=== PATIENT | female | born 1995 | race Caucasian/White ===

== ENCOUNTER 2018-10-19 14:26 | Emergency (ER) | payer SELFPAY ==
--- NOTE | 2018-10-19 16:38 | EDM.PDOC ---
ED HPI GENERAL MEDICAL PROBLEM Lower Pelvic Pain Score (Numeric/FACES): 7 <Cynthia Gill - Last Filed: 10/19/18 16:32> - General Source of Information: Reports: Patient, Family, RN Notes Reviewed History Limitations: Reports: No Limitations <IesharPrince - Last Filed: 10/19/18 17:21> - General Chief Complaint: WINDOWS APPLICATION PACKAGER Problem Stated Complaint: 10 WKS /SPOTTING/CRAMPING Time Seen by Provider: 10/19/18 17:17 - History of Present Illness INITIAL COMMENTS - FREE TEXT/NARRATIVE: Twila is a 23-year-old at 10 weeks 1 day gestation who presents to the ER with complaints of vaginal spotting, abdominal cramping, back pain, and dysuria for the past two days. Reports a history of UTIs, particularly after taking baths. States she took a bath the night before these symptoms began. She has had a scant amount of blood on the toilet paper when wiping, but denies a sudden gush of bleeding or clots. She has had ongoing lower abdominal cramping and back pain which she rates at a 5-6/10. She does have constipation at times, and had one hard bowel movement this morning. She follows with an WINDOWS APPLICATION PACKAGER in [place] and has had one visit thus far. 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 History: had gestational diabetes with first and had second child 4 months early - Past Surgical History Musculoskeletal Surgical History: Reports: Other (See Below) Other Musculoskeletal Surgeries/Procedures:: hip surgery <Cynthia Gill - Last Filed: 10/19/18 16:32> Social & Family History - Tobacco Use Smoking Status *Q: Current Every Day Smoker Years of Tobacco use: 6 Packs/Tins Daily: 0.5 - Caffeine Use Caffeine Use: Reports: Coffee, Soda, Tea - Recreational Drug Use Recreational Drug Use: No <Cynthia Gill - Last Filed: 10/19/18 16:32> ED ROS GENERAL - Review of Systems Review Of Systems: See Below Constitutional: Reports: Fatigue. Denies: Fever, Chills, Weakness HEENT: Reports: No Symptoms Respiratory: Reports: No Symptoms. Denies: Shortness of Breath Cardiovascular: Reports: No Symptoms Endocrine: Reports: Fatigue GI/Abdominal: Reports: Abdominal Pain (Cramping in the lower quadrants), Constipation. Denies: Diarrhea, Nausea, Vomiting : Reports: Discharge, Frequency, Urgency Skin: Reports: No Symptoms Neurological: Reports: No Symptoms Psychiatric: Reports: No Symptoms Hematologic/Lymphatic: Reports: No Symptoms, Easy Bleeding. Denies: Easy Bruising <BridgetCynthia N - Last Filed: 10/19/18 16:32> ED EXAM - Physical Exam Exam Limited By: No Limitations General Appearance: Alert, WD/WN, No Apparent Distress Eye Exam: Bilateral Eye: Normal Inspection Nose: Normal Inspection Head: Atraumatic, Normocephalic Respiratory/Chest: No Respiratory Distress, Lungs Clear, Normal Breath Sounds Cardiovascular: Normal Peripheral Pulses, Regular Rate, Rhythm, No Edema, No Gallop, No Murmur, No Rub GI/Abdominal Exam: Normal Bowel Sounds, Soft, Tender (Lower quadrants bilaterally) Rectal Exam: Deferred Heart Tones: Present Movement: Active Neurological: Alert, Oriented, Normal Cognition, No Motor/Sensory Deficits Psychiatric: Normal Affect, Normal Mood Skin Exam: Warm, Dry, Intact <Cynthia Gill N - Last Filed: 10/19/18 16:32> - Physical Exam Exam: See Below <IesharPrince - Last Filed: 10/19/18 17:21> - Physical Exam Text/Narrative:: Agree with physical exam below, I personally attempted to obtain heart tones with Doppler was unsuccessful however was able to find fetus and cardiac activity with ultrasound (IesharPrince) - Vital Signs Last Recorded V/S: Last Vital Signs Temp 97.7 F 10/19/18 15:40 Pulse 71 10/19/18 15:40 Resp 18 10/19/18 15:40 BP 105/53 L 10/19/18 15:40 Pulse Ox 98 10/19/18 15:40 - Orders/Labs/Meds Labs: Laboratory Tests 10/19/18 Range/Units 16:46 Urine Color Yellow Urine Appearance Cloudy Urine pH 6.0 (4.5-8.0) Ur Specific [place] 1.020 (1.008-1.030) Urine Protein Negative (NEGATIVE) mg/dL Urine Glucose (UA) Normal (NEGATIVE) mg/dL Urine Ketones Negative (NEGATIVE) mg/dL Urine Occult Blood Moderate (NEGATIVE) Urine Nitrite Positive H (NEGATIVE) Urine Bilirubin Negative (NEGATIVE) Urine Urobilinogen Normal (NORMAL) mg/dL Ur Leukocyte Esterase Moderate (NEGATIVE) Urine RBC 10-20 H (0-5) Urine WBC 20-30 H (0-5) Ur Epithelial Cells Rare Amorphous Sediment Not seen Urine Bacteria Many Urine Mucus Not seen Departure <BridgetKimCynthia N - Last Filed: 10/19/18 16:32> - Departure Time of Disposition: 17:20 Condition: Fair <Prince Sepulveda - Last Filed: 10/19/18 17:21> - Departure Disposition: Home, Self-Care 01 Clinical Impression: Urinary tract infection Qualifiers: Urinary tract infection type: acute cystitis Hematuria presence: with hematuria Qualified Code(s): N30.01 - Acute cystitis with hematuria - Discharge Information Referrals: PCP,None [Primary Care Provider] - Forms: ED Department Discharge Additional Instructions: Take full course of antibiotics, please follow-up with your WINDOWS APPLICATION PACKAGER upon return home, a urine culture was done which will not be available for 3 or 4 days call return to the emergency department worsening of symptoms <BridgetCynthia Scott - Last Filed: 10/19/18 16:32> <Prince Sepulveda - Last Filed: 10/19/18 17:21> - Assessment/Plan Plan: Assessment Acuity = acute Site and laterality = urinary tract infection complicated patient and first trimester Etiology = probable bacterial cause Manifestations = hematuria Location of injury = Home Lab values = urinalysis positive for nitrates, 10 to 20 rbc's consistent hematuria and 20-30 WBCs consistent with pyuria cultures pending Plan Elected to treat empirically amoxicillin 500 mg by mouth 3 times a day 7 days follow-up with WINDOWS APPLICATION PACKAGER upon return home * Prince Jules MD was personally available for consultation in the ED. I have reviewed the chart and agree with the documentation as recorded by the NURSE ESTHETICIAN student, including the assessment, treatment plan and disposition. * Prince Jules MD personally saw and examined the patient. I have reviewed and agree with the NURSE ESTHETICIAN student's findings. (Officer,Prince)
== END 2018-10-19 17:25 | disposition home or self-care (01) ==
LOC: JP.ED 14:26
DX: O23.41 Unspecified infection of urinary tract in pregnancy, first trimester (principal); O99.331 Smoking (tobacco) complicating pregnancy, first trimester; F17.210 Nicotine dependence, cigarettes, uncomplicated; Z3A.10 10 weeks gestation of pregnancy
CPT/HCPCS: 81001; 99284

== ENCOUNTER 2018-12-02 11:55 | Emergency (ER) | payer MEDICAID, OTHER ==
--- NOTE | 2018-12-02 12:49 | EDM.PDOC ---
ED HPI GENERAL MEDICAL PROBLEM - General Chief Complaint: Abdominal Pain Stated Complaint: 16 WKS PREG W/ ABD PAINS AND DIZZY Time Seen by Provider: 12/02/18 12:35 Source of Information: Reports: Patient, Old Records, RN History Limitations: Reports: No Limitations - History of Present Illness INITIAL COMMENTS - FREE TEXT/NARRATIVE: 23 yo female who is 16 weeks presents with several days of low abdominal pain and now dizziness. Denies vaginal bleeding. Has not discussed her sx's with her OB doctor. Has no urinary sx's and was tx'd recently for a UTI with amoxicillin. Bowels normal. This is her 3rd . Had this pain with one of her previous pregnancies. States doesn't remember what they told her , but they didn't do anything about it. Onset: Gradual Duration: Day(s):, Getting Worse Location: Reports: Head (dizzy), Abdomen Quality: Reports: Pressure Severity: Moderate Improves with: Reports: None Worsens with: Reports: None Context: Reports: Other (see HPI) Associated Symptoms: Reports: Other (light-headedness) Treatments BABBITT SPINNER: Reports: Other (see below) (none) - Related Data Allergies Allergy/AdvReac Type Severity Reaction Status Date / Time No Known Allergies Allergy Verified 12/02/18 12:11 Home Meds: Home Meds [id number]/Iron Fumarate/FA/DSS [ 19 Tablet] 1 tab PO DAILY 10/19/18 [ History] hydrOXYzine pamoate [Hydroxyzine Pamoate] 12/02/18 [History] 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: had gestational diabetes with first and had second child 4 months early - Past Surgical History Musculoskeletal Surgical History: Reports: Other (See Below) Other Musculoskeletal Surgeries/Procedures:: hip surgery Social & Family History - Tobacco Use Smoking Status *Q: Never Smoker - Caffeine Use Caffeine Use: Reports: Coffee, Soda, Tea ED ROS GENERAL - Review of Systems Review Of Systems: See Below Constitutional: Reports: No Symptoms HEENT: Reports: No Symptoms Respiratory: Reports: No Symptoms Cardiovascular: Reports: No Symptoms, Lightheadedness GI/Abdominal: Reports: Abdominal Pain : Reports: No Symptoms Musculoskeletal: Reports: No Symptoms Skin: Reports: No Symptoms Psychiatric: Reports: No Symptoms ED EXAM, GI/ABD - Physical Exam Exam: See Below Text/Narrative:: No nystagmus. Exam Limited By: No Limitations General Appearance: Alert, WD/WN, No Apparent Distress Eyes: Bilateral: Normal Appearance Ears: Normal External Exam, Normal Canal, Hearing Grossly Normal, Normal TMs Nose: Normal Inspection, No Blood Throat/Mouth: Normal Inspection, Normal Lips, Normal Oropharynx, Normal Voice, No Airway Compromise Head: Atraumatic, Normocephalic Neck: Normal Inspection, Supple Respiratory/Chest: No Respiratory Distress, Lungs Clear, Normal Breath Sounds, No Accessory Muscle Use Cardiovascular: Regular Rate, Rhythm, No Edema GI/Abdominal Exam: Normal Bowel Sounds, Soft, Non-Tender, No Distention Back Exam: Normal Inspection. No: CVA Tenderness (R), CVA Tenderness (L) Extremities: Normal Inspection, Normal Range of Motion, Non-Tender, No Pedal Edema Neurological: Alert, Oriented, CN II-XII Intact, Normal Cognition, No Motor/ Sensory Deficits Psychiatric: Normal Affect, Normal Mood Skin Exam: Warm, Dry, Intact, Normal Color, No Rash Course - Vital Signs Last Recorded V/S: Last Vital Signs Temp 36.6 C 12/02/18 12:18 Pulse 76 12/02/18 12:18 Resp 14 12/02/18 12:18 BP 101/51 L 12/02/18 12:18 Pulse Ox 98 12/02/18 12:18 Orthostatic Blood Pressure [ 105/53 Standing] Orthostatic Blood Pressure [ 96/47 Sitting] Orthostatic Blood Pressure [ 104/48 Supine] - Orders/Labs/Meds Orders: Active Orders 24 hr Category Date Time Status Orthostatic Vital Signs [RC] ASDIRECTED Care 12/02/18 12:43 Active Labs: Laboratory Tests 12/02/18 Range/Units 13:02 Urine Color Yellow Urine Appearance Cloudy Urine pH 6.0 (4.5-8.0) Ur Specific [place] 1.020 (1.008-1.030) Urine Protein Negative (NEGATIVE) mg/dL Urine Glucose (UA) Normal (NEGATIVE) mg/dL Urine Ketones Negative (NEGATIVE) mg/dL Urine Occult Blood Trace (NEGATIVE) Urine Nitrite Negative (NEGATIVE) Urine Bilirubin Negative (NEGATIVE) Urine Urobilinogen Normal (NORMAL) mg/dL Ur Leukocyte Esterase Negative (NEGATIVE) Urine RBC 0-5 (0-5) Urine WBC 0-5 (0-5) Ur Epithelial Cells Few Amorphous Sediment Many Urine Bacteria Few Urine Mucus Not seen Departure - Departure Time of Disposition: 13:20 Disposition: Home, Self-Care 01 Condition: Good Clinical Impression: Round ligament pain, First trimester - Discharge Information *PRESCRIPTION DRUG MONITORING PROGRAM REVIEWED*: No *COPY OF PRESCRIPTION DRUG MONITORING REPORT IN PATIENT ADA: No Instructions: First Trimester of , [id number] Referrals: Ruth Choi CNM [Primary Care Provider] - Forms: ED Department Discharge Additional Instructions: Take acetaminophen as needed for your round ligament pain. Drink ample fluids. If you get light-headed sit down right away and drink a glass of water. Recheck with your OB doctor as needed. - My Orders Last 24 Hours: My Active Orders 12/02/18 12:43 Orthostatic Vital Signs [RC] ASDIRECTED - Assessment/Plan Last 24 Hours: My Active Orders 12/02/18 12:43 Orthostatic Vital Signs [RC] ASDIRECTED
== END 2018-12-02 13:33 | disposition home or self-care (01) ==
LOC: JP.ED 11:55
DX: O99.89 Other specified diseases and conditions complicating pregnancy, childbirth and the puerperium (principal); R10.2 Pelvic and perineal pain; R42 Dizziness and giddiness; Z3A.16 16 weeks gestation of pregnancy
CPT/HCPCS: 81001; 99284

== ENCOUNTER 2019-05-13 05:02 | Inpatient (IN) | payer MEDICAID ==
[2019-05-13] MEDS ORDERED: Penicillin G Potassium 5 MILLUNITS in Sodium Chloride 0.9% 50 ML IV ONE (05:31)
[2019-05-13] MEDS ORDERED: Sodium Chloride 0.9% 1,000 ML IV ONE (05:58)
[2019-05-13] MEDS ORDERED: Sodium Chloride 0.9% 10 ML Syringe FLUSH PRN (06:00)
[2019-05-13] MEDS ORDERED: Ondansetron 4 MG/2 ML SDV IV PRN (06:07)
[2019-05-13] MEDS ORDERED: Acetaminophen 325 MG Tab PO PRN (06:07)
--- NOTE | 2019-05-13 06:38 | PCM.LDHP ---
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 History: had gestational diabetes with first and had second child 4 months early - Past Surgical History Musculoskeletal Surgical History: Reports: Other (See Below) Other Musculoskeletal Surgeries/Procedures:: hip surgery Social & Family History - Caffeine Use Caffeine Use: Reports: Coffee, Soda, Tea H&P Review of Systems - Review of Systems: Review Of Systems: See Below General: Reports: No Symptoms HEENT: Reports: No Symptoms Pulmonary: Reports: No Symptoms Cardiovascular: Reports: No Symptoms Gastrointestinal: Reports: No Symptoms Genitourinary: Reports: No Symptoms Musculoskeletal: Reports: No Symptoms Skin: Reports: No Symptoms Psychiatric: Reports: No Symptoms Neurological: Reports: No Symptoms Hematologic/Lymphatic: Reports: No Symptoms Immunologic: Reports: No Symptoms L&D Exam - Exam Exam: See Below - OB Specific Contraction Intensity: Moderate Movement: Active Heart Tones: Present Heart Rate (FHR) Variability: Moderate (6-25 bmp) Presentation: Vertex - Harden Score Harden Score Cervix Position: Midposition Harden Score Consistency: Soft Harden Score Effacement: >80% Harden Score Dilation: > 5 cm Harden Score 's Station: -1 ,0 Harden Score Total: 11 - Exam General: Alert, Oriented, Cooperative HEENT: PERRLA, Conjunctiva Clear, EACs Clear, EOMI, Hearing Intact, Mucosa Moist & [place], Nares Patent, Normal Nasal Septum, Posterior Pharynx Clear, TMs Clear Neck: Supple, Trachea Midline Lungs: Clear to Auscultation, Normal Respiratory Effort Cardiovascular: Regular Rate, Regular Rhythm GI/Abdominal Exam: Normal Bowel Sounds, Soft, Non-Tender, No Organomegaly, No Distention, No Abnormal Bruit, No Mass, Pelvis Stable Rectal Exam: Normal Exam, Normal Rectal Tone Genitourinary: Normal external exam, Normal bimanual exam, Normal speculum exam Back Exam: Normal Inspection, Full Range of Motion Extremities: Normal Inspection, Normal Range of Motion, Non-Tender, No Pedal Edema, Normal Capillary Refill Skin: Warm, Dry, Intact Neurological: Cranial Nerves Intact, Reflexes Equal Bilateral Psychiatric: Alert, Normal Affect, Normal Mood - Patient Data Lab Results Last 24 hrs: Laboratory Results - last 24 hr 05/13/19 05/13/19 05/13/19 Range/Units 05:08 05:20 05:22 Urine Color Yellow (YELLOW) Urine Appearance Clear (CLEAR) Urine pH 6.5 (5.0-8.0) Ur Specific [place] 1.010 (1.008-1.030) Urine Protein Negative (NEGATIVE) mg/dL Urine Glucose (UA) 100 H (NEGATIVE) mg/dL Urine Ketones Negative (NEGATIVE) mg/dL Urine Occult Blood Trace-lysed H (NEGATIVE) Urine Nitrite Negative (NEGATIVE) Urine Bilirubin Negative (NEGATIVE) Urine Urobilinogen 1.0 (0.2-1.0) EU/dL Ur Leukocyte Esterase Negative (NEGATIVE) Urine RBC 0-5 (0-5) Urine WBC 0-5 (0-5) Ur Epithelial Cells Moderate Amorphous Sediment Not seen Urine Bacteria Few Urine Mucus Not seen Membrane Rupture Positive H (NEGATIVE) Urine Opiates Screen Negative (NEGATIVE) Ur Oxycodone Screen Negative (NEGATIVE) Urine Methadone Screen Negative (NEGATIVE) Ur Propoxyphene Screen Negative (NEGATIVE) Ur Barbiturates Screen Negative (NEGATIVE) Ur Tricyclics Screen Negative (NEGATIVE) Ur Phencyclidine Scrn Negative (NEGATIVE) Ur Amphetamine Screen Presumptive positive H (NEGATIVE) U Methamphetamines Scrn Presumptive positive H (NEGATIVE) Urine MDMA Screen Negative (NEGATIVE) U Benzodiazepines Scrn Negative (NEGATIVE) U Cocaine Metab Screen Negative (NEGATIVE) U Marijuana (THC) Screen Negative (NEGATIVE) - Problem List (1) Positive urine drug screen SNOMED Code(s): 023337596, 193699331, 523969639 ICD Code: R82.5 - ELEVATED URINE LEVELS OF DRUG/MEDS/BIOL SUBST Status: Acute Current Visit: Yes (2) High risk due to history of labor SNOMED Code(s): 666007250 ICD Code: O09.219 - SUPRVSN OF PREG W HISTORY OF PRE-TERM LABOR, UNSP TRIMESTER Status: Acute Current Visit: Yes (3) care insufficient SNOMED Code(s): 2922355744784 ICD Code: O09.30 - SUPRVSN OF PREG W INSUFFICIENT ANTENAT CARE, UNSP TRIMESTER Status: Acute Current Visit: Yes (4) SROM (spontaneous rupture of membranes) SNOMED Code(s): 987988153 ICD Code: [id number] - Status: Acute Current Visit: Yes (5) Labor established SNOMED Code(s): 98808390 ICD Code: [id number] - Status: Acute Current Visit: Yes (6) SNOMED Code(s): 80174424 ICD Code: Z34.90 - ENCNTR FOR SUPRVSN OF NORMAL , UNSP, UNSP TRIMESTER Status: Acute Current Visit: Yes Qualifiers: Weeks of gestation: 39 weeks Qualified Code(s): Z3A.39 - 39 weeks gestation of Problem List Initiated/Reviewed/Updated: Yes Orders Last 24hrs: Active Orders 24 hr Category Date Time Status Patient Status [ADT] Routine ADT 05/13/19 06:00 Active Ambulate [RC] PER UNIT ROUTINE Care 05/13/19 06:07 Active Communication Order [RC] ASDIRECTED Care 05/13/19 06:00 Active Heart Tones [RC] PER UNIT ROUTINE Care 05/13/19 06:00 Active Non Stress Test [RC] Click to Edit Care 05/13/19 06:00 Active May Shower [RC] ASDIRECTED Care 05/13/19 06:07 Active Notify Provider Vital Signs [RC] PRN Care 05/13/19 06:07 Active Notify Provider [RC] PRN Care 05/13/19 06:00 Active OB Check [OM.PC] Click to Edit Care 05/13/19 05:07 Ordered Up ad Jessica [RC] ASDIRECTED Care 05/13/19 06:07 Active VTE/DVT Education [RC] Click to Edit Care 05/13/19 06:13 Active Vital Signs [RC] PER UNIT ROUTINE Care 05/13/19 06:00 Active Consult to Case Management/Sharepoint Trainer [CONS] Cons 05/13/19 06:07 Active Routine Regular Diet [DIET] Diet 05/13/19 Breakfast Active CBC WITH AUTO DIFF [HEME] Urgent Lab 05/13/19 06:28 Received Acetaminophen [Tylenol] Med 05/13/19 06:07 Active 650 mg PO Q4H PRN Ondansetron [Zofran] Med 05/13/19 06:07 Active 4 mg IV Q4H PRN Sodium Chloride 0.9% [Normal Saline] 1,000 ml Med 05/13/19 05:58 Active IV BOLUS Sodium Chloride 0.9% [Saline Flush] Med 05/13/19 06:00 Active 10 ml FLUSH ASDIRECTED PRN DVT/VTE Prophylaxis Reflex [OM.PC] Routine Oth 05/13/19 06:07 Ordered Saline Lock Insert [OM.PC] Routine Oth 05/13/19 06:00 Ordered Resuscitation Status Routine Resus Stat 05/13/19 06:00 Ordered Medication Orders Acetaminophen (Tylenol) 650 mg PO Q4H PRN PRN Reason: Pain (Mild 1-3) and fever Sodium Chloride (Normal Saline) 1,000 mls @ 999 mls/hr IV BOLUS ONE Stop: 05/13/19 06:58 Ondansetron HCl (Zofran) 4 mg IV Q4H PRN PRN Reason: Nausea/Vomiting Sodium Chloride (Saline Flush) 10 ml FLUSH ASDIRECTED PRN PRN Reason: Keep Vein Open Assessment/Plan Comment:: 05/13/2019 23 yo here at 39 3/7 weeks gestation with SROM at 0300 this am History of poor care Drug use-methamphetamine patient admitted to as recently as today History of at 24 weeks gestation last History of noncompliance Labs-A positive, Hep B neg, Hep C neg, HIV neg, RPR nonreactive, Rubella Immune , GBS negative, UDS positive today for methamphetamines and amphetamines Plan- Continue to monitor labor Continue to monitor FHTs If labor does not progress with start pitocin Give IV bolus at this time Social service consult for positive UDS Pain management per patient request Plan and anticipate a vaginal delivery
[2019-05-13] MEDS ORDERED: Lactated Ringers 1,000 ML IV SCH (06:45)
[2019-05-13] MEDS ORDERED: fentaNYL 100 MCG/2 ML SDV ONE (10:35)
[2019-05-13] MEDS ORDERED: Methylergonovine 0.2 MG/1 ML Amp ONE (10:42)
[2019-05-13] MEDS ORDERED: Benzocaine 20% Top Spray 56 GM Bottle TOP PRN (10:58)
[2019-05-13] MEDS ORDERED: Witch Hazel Medicated Pads 100/Jar TOP PRN (10:58)
[2019-05-13] MEDS ORDERED: Acetaminophen 325 MG Tab, 50 Tab Bulk Bottle PO PRN (11:04)
[2019-05-13] MEDS ORDERED: Ibuprofen 200 MG Tab, 24 Tab Bulk Bottle PO PRN (11:04)
[2019-05-13] MEDS ORDERED: Methylergonovine 0.2 MG/1 ML Amp IM STA (11:54)
--- NOTE | 2019-05-13 14:15 | PCM.DEL ---
L & D Note - General Info Date of Service: 05/13/19 Mother's Due Date: 05/17/19 - Delivery Note Delivery Outcome: Livebirth Infant Delivery Method: Spontaneous Vaginal Delivery-Single Delivery Mode: Spontaneous Presentation: Left Occiput Posterior (LOP) Nuchal Cord: None Anesthesia Type: Nitrous Oxide Episiotomy Type: None Laceration: None Placenta: Intact, Spontaneous Cord: 3 Vessels Estimated Blood Loss: 500 Resuscitation Needed: No [place]: Bulb Syringe, Stimulated, Warmed, [place] Used Provider: Marcia Sanots Score 1 min: 7 Score 5 min: 7 Score 10 min: 8 Post Delivery Events: Hemorrhage Second Stage Interventions: Reports: Second Nurse Assessed Progress of Descent, Second Nurse Reviewed Contraction Pattern, Second Nurse Reviewed Heart Tones, Encouragement Given, Pushing Effectively, Pushing Ineffectively, Pushing Involuntarily, Pushing, McRobert's Position, Pushing, Stirrups/Leg Supports Delivery Comments (Free Text/Narrative):: 05/13/2019 23 yo delivered a viable male in LOP position over an intact perineum at 1019 on 05/13/2019. Patient did struggle some with control during pain and pushing, was at some times not pushing effectively. Did get in control and was able to push effectively. was then delivered and placed on prewarmed blanket on mother's abdomen, cord was double clamped and cut by CNM after about 30 seconds of delayed cord clamping. then began to cry and pink up in color. Bulb suctioned, stimulated, warmed and dried. APGARS-7/7 /8, weight-6lbs 11oz, length-19 inches, then still was not crying vigorously so was brought to the warmer for more assessment. At warmer did use a delee and deep suctioned about 6-7ml of bloody mucous at that time and infant then became more vigorous and pinked in color. Then went back to placenta which was slower coming out and had three larger blood clots, three vessel cord , 500ml EBL. No lacerations noted of vagina, perineum, labia, or rectum. now with nurse due to patient unsure if giving up for adoption and history of drug use. Due to delivery and complications did order a CXR, CBC, CRP on baby. Both patients currently stable at time of report. Stages of labor- 1st [id number] 2nd [id number] 3rd [id number] - General Info Date of Service: 05/13/19 Functional Status: Reports: Pain Controlled - Review of Systems General: Reports: No Symptoms HEENT: Reports: No Symptoms Pulmonary: Reports: No Symptoms Cardiovascular: Reports: No Symptoms Gastrointestinal: Reports: No Symptoms Genitourinary: Reports: No Symptoms Musculoskeletal: Reports: No Symptoms Skin: Reports: No Symptoms Neurological: Reports: No Symptoms Psychiatric: Reports: No Symptoms - Patient Data Vitals - Most Recent: Last Vital Signs Temp 36.0 C 05/13/19 11:30 Pulse 90 05/13/19 11:30 Resp 16 05/13/19 11:30 BP 120/64 05/13/19 11:30 Pulse Ox 96 05/13/19 10:00 Weight - Most Recent: 54.885 kg I&O - Last 24 Hours: Intake & Output 05/12/19 05/13/19 05/13/19 22:59 06:59 14:59 Intake Total 2480 Balance 2480 Lab Results Last 24 Hours: Laboratory Results - last 24 hr 05/13/19 05/13/19 05/13/19 Range/Units 05:08 05:20 05:22 WBC (4.5-11.0) K/uL RBC (3.30-5.50) M/uL Hgb (12.0-15.0) g/dL Hct (36.0-48.0) % MCV (80-98) fL MCH (27-31) pg MCHC (32-36) % Plt Count (150-400) K/uL Neut % (Auto) (36-66) % Lymph % (Auto) (24-44) % [place] % (Auto) (2-6) % Eos % (Auto) (2-4) % Baso % (Auto) (0-1) % Urine Color Yellow (YELLOW) Urine Appearance Clear (CLEAR) Urine pH 6.5 (5.0-8.0) Ur Specific [place] 1.010 (1.008-1.030) Urine Protein Negative (NEGATIVE) mg/dL Urine Glucose (UA) 100 H (NEGATIVE) mg/dL Urine Ketones Negative (NEGATIVE) mg/dL Urine Occult Blood Trace-lysed H (NEGATIVE) Urine Nitrite Negative (NEGATIVE) Urine Bilirubin Negative (NEGATIVE) Urine Urobilinogen 1.0 (0.2-1.0) EU/dL Ur Leukocyte Esterase Negative (NEGATIVE) Urine RBC 0-5 (0-5) Urine WBC 0-5 (0-5) Ur Epithelial Cells Moderate Amorphous Sediment Not seen Urine Bacteria Few Urine Mucus Not seen Membrane Rupture Positive H (NEGATIVE) Urine Opiates Screen Negative (NEGATIVE) Ur Oxycodone Screen Negative (NEGATIVE) Urine Methadone Screen Negative (NEGATIVE) Ur Propoxyphene Screen Negative (NEGATIVE) Ur Barbiturates Screen Negative (NEGATIVE) Ur Tricyclics Screen Negative (NEGATIVE) Ur Phencyclidine Scrn Negative (NEGATIVE) Ur Amphetamine Screen Presumptive positive H (NEGATIVE) U Methamphetamines Scrn Presumptive positive H (NEGATIVE) Urine MDMA Screen Negative (NEGATIVE) U Benzodiazepines Scrn Negative (NEGATIVE) U Cocaine Metab Screen Negative (NEGATIVE) U Marijuana (THC) Screen Negative (NEGATIVE) 05/13/19 Range/Units 06:28 WBC 11.0 (4.5-11.0) K/uL RBC 3.48 (3.30-5.50) M/uL Hgb 10.0 L (12.0-15.0) g/dL Hct 32.0 L (36.0-48.0) % MCV 92 (80-98) fL MCH 29 (27-31) pg MCHC 31 L (32-36) % Plt Count 270 (150-400) K/uL Neut % (Auto) 74 H (36-66) % Lymph % (Auto) 20 L (24-44) % [place] % (Auto) 6 (2-6) % Eos % (Auto) 1 L (2-4) % Baso % (Auto) 0 (0-1) % Urine Color (YELLOW) Urine Appearance (CLEAR) Urine pH (5.0-8.0) Ur Specific [place] (1.008-1.030) Urine Protein (NEGATIVE) mg/dL Urine Glucose (UA) (NEGATIVE) mg/dL Urine Ketones (NEGATIVE) mg/dL Urine Occult Blood (NEGATIVE) Urine Nitrite (NEGATIVE) Urine Bilirubin (NEGATIVE) Urine Urobilinogen (0.2-1.0) EU/dL Ur Leukocyte Esterase (NEGATIVE) Urine RBC (0-5) Urine WBC (0-5) Ur Epithelial Cells Amorphous Sediment Urine Bacteria Urine Mucus Membrane Rupture (NEGATIVE) Urine Opiates Screen (NEGATIVE) Ur Oxycodone Screen (NEGATIVE) Urine Methadone Screen (NEGATIVE) Ur Propoxyphene Screen (NEGATIVE) Ur Barbiturates Screen (NEGATIVE) Ur Tricyclics Screen (NEGATIVE) Ur Phencyclidine Scrn (NEGATIVE) Ur Amphetamine Screen (NEGATIVE) U Methamphetamines Scrn (NEGATIVE) Urine MDMA Screen (NEGATIVE) U Benzodiazepines Scrn (NEGATIVE) U Cocaine Metab Screen (NEGATIVE) U Marijuana (THC) Screen (NEGATIVE) Med Orders - Current: Current Medications Acetaminophen (Tylenol) 650 mg PO Q4H PRN PRN Reason: Pain (Mild 1-3) and fever Acetaminophen (Tylenol Bulk Bottle) 325 mg PO Q4H PRN PRN Reason: Pain Last Admin: 05/13/19 11:53 Dose: 1 bottle Benzocaine (Hvjr-I-Amxvgpk 20% [place]) 0 gm TOP Q4H PRN PRN Reason: Perineal Comfort Measure Lactated Ringer's (Ringers, Lactated) 1,000 mls @ 100 mls/hr IV ASDIRECTED SAI Last Admin: 05/13/19 06:44 Dose: 100 mls/hr Oxytocin/Sodium Chloride (Pitocin In Ns 20 Units/1,000 Ml) 20 unit in 1,000 mls @ 6 mls/hr IV TITRATE SAI; Protocol Last Titration: 05/13/19 10:25 Dose: 999 mls/hr Ibuprofen (Motrin Bulk Bottle) 600 mg PO Q6H PRN PRN Reason: Pain Last Admin: 05/13/19 11:53 Dose: 1 bottle Ondansetron HCl (Zofran) 4 mg IV Q4H PRN PRN Reason: Nausea/Vomiting Sodium Chloride (Saline Flush) 10 ml FLUSH ASDIRECTED PRN PRN Reason: Keep Vein Open Witch Sofie (Tucks) 1 pad TOP ASDIRECTED PRN PRN Reason: Hemorrhoids Discontinued Medications Fentanyl (Sublimaze) Confirm Administered Dose 100 mcg .ROUTE .STK-MED ONE Stop: 05/13/19 10:36 Last Admin: 05/13/19 11:53 Dose: Not Given Penicillin G Potassium 5 (millunits/ Sodium Chloride) 50 mls @ 100 mls/hr IV ONETIME ONE Stop: 05/13/19 06:00 Last Admin: 05/13/19 07:16 Dose: Not Given Sodium Chloride (Normal Saline) 1,000 mls @ 999 mls/hr IV BOLUS ONE Stop: 05/13/19 06:58 Last Admin: 05/13/19 05:45 Dose: 999 mls/hr Methylergonovine Maleate (Methergine) 0.2 mg IM Q4H STA Stop: 05/13/19 11:55 Last Admin: 05/13/19 10:45 Dose: 0.2 mg - Exam General: Alert, Oriented, Cooperative HEENT: Pupils Equal, Pupils Reactive, EOMI, Mucous Membr. Moist/[place] Neck: Supple Lungs: Clear to Auscultation, Normal Respiratory Effort Cardiovascular: Regular Rate, Regular Rhythm GI/Abdominal Exam: Normal Bowel Sounds, Soft, Non-Tender, No Organomegaly, No Distention, No Abnormal Bruit, No Mass, Pelvis Stable (Female) Exam: Normal External Exam, Normal Speculum Exam, Normal Bimanual Exam, Enlarged Uterus, Vaginal Bleeding Back Exam: Normal Inspection, Full Range of Motion Extremities: Normal Inspection, Normal Range of Motion, Non-Tender, No Pedal Edema, Normal Capillary Refill Skin: Warm, Dry, Intact Neurological: No New Focal Deficit Psy/Mental Status: Alert, Normal Affect, Normal Mood - Problem List & Annotations (1) Positive urine drug screen SNOMED Code(s): 848919438, 192295371, 457272540 Code(s): R82.5 - ELEVATED URINE LEVELS OF DRUG/MEDS/BIOL SUBST Status: Acute Current Visit: Yes (2) High risk due to history of labor SNOMED Code(s): 340880239 Code(s): O09.219 - SUPRVSN OF PREG W HISTORY OF PRE-TERM LABOR, UNSP TRIMESTER Status: Acute Current Visit: Yes (3) care insufficient SNOMED Code(s): 4996581345073 Code(s): O09.30 - SUPRVSN OF PREG W INSUFFICIENT ANTENAT CARE, UNSP TRIMESTER Status: Acute Current Visit: Yes (4) SROM (spontaneous rupture of membranes) SNOMED Code(s): 820364937 Code(s): LSH0072 - Status: Acute Current Visit: Yes (5) Labor established SNOMED Code(s): 10838687 Code(s): MDO1729 - Status: Acute Current Visit: Yes (6) SNOMED Code(s): 77260223 Code(s): Z34.90 - ENCNTR FOR SUPRVSN OF NORMAL , UNSP, UNSP TRIMESTER Status: Acute Current Visit: Yes Qualifiers: Weeks of gestation: 39 weeks Qualified Code(s): Z3A.39 - 39 weeks gestation of (7) Vaginal delivery SNOMED Code(s): 299581596 Code(s): O80 - ENCOUNTER FOR FULL-TERM UNCOMPLICATED DELIVERY Status: Acute Current Visit: Yes (8) hemorrhage SNOMED Code(s): 44006307 Code(s): O72.1 - OTHER IMMEDIATE HEMORRHAGE Status: Acute Current Visit: Yes Qualifiers: hemorrhage type: third-stage Qualified Code(s): O72.0 - Third- stage hemorrhage - Problem List Review Problem List Initiated/Reviewed/Updated: Yes - My Orders Last 24 Hours: My Active Orders 05/13/19 05:07 OB Check [OM.PC] Click to Edit 05/13/19 06:00 Patient Status [ADT] Routine Sodium Chloride 0.9% [Saline Flush] 10 ml FLUSH ASDIRECTED PRN Saline Lock Insert [OM.PC] Routine Resuscitation Status Routine 05/13/19 06:07 Ambulate [RC] PER UNIT ROUTINE May Shower [RC] ASDIRECTED Notify Provider Vital Signs [RC] PRN Up ad Jessica [RC] ASDIRECTED Consult to Case Management/Mortgage Protection Specialist [CONS] Routine Acetaminophen [Tylenol] 650 mg PO Q4H PRN Ondansetron [Zofran] 4 mg IV Q4H PRN DVT/VTE Prophylaxis Reflex [OM.PC] Routine 05/13/19 06:13 VTE/DVT Education [RC] Click to Edit 05/13/19 06:43 AMPHETAMINE SCREEN RFLX Routine 05/13/19 06:45 Lactated Ringers [Ringers, Lactated] 1,000 ml IV ASDIRECTED Oxytocin/Normal Saline [Pitocin in NS 20 Units/1,000 ML] 20 unit in 1,000 ml IV TITRATE 05/13/19 10:58 Patient Status [ADT] Routine Vital Signs [RC] PFP Benzocaine [Qlbc-P-Sohcubr 20% [place]] See Dose Instructions TOP Q4H PRN Witch Sofie [Tucks] 1 pad TOP ASDIRECTED PRN Assess Lochia [WOMSER] Per Unit Routine Assess Uterine Involution [WOMSER] Per Unit Routine 05/13/19 11:04 Acetaminophen [Tylenol Bulk Bottle] 325 mg PO Q4H PRN Ibuprofen [Motrin Bulk Bottle] 600 mg PO Q6H PRN 05/13/19 Breakfast Regular Diet [DIET] 05/14/19 06:00 CBC WITH AUTO DIFF [HEME] Routine - Assessment Assessment:: 05/13/2019 23 yo G4 now P3 delivered Bottlefeeding Hemorrhage Positive Drug Screen - Plan Plan:: 05/13/2019 23 yo here at 39 3/7 weeks gestation with SROM at 0300 this am History of poor care Drug use-methamphetamine patient admitted to as recently as today History of at 24 weeks gestation last History of noncompliance Labs-A positive, Hep B neg, Hep C neg, HIV neg, RPR nonreactive, Rubella Immune , GBS negative, UDS positive today for methamphetamines and amphetamines Plan- Continue to monitor labor Continue to monitor FHTs If labor does not progress with start pitocin Give IV bolus at this time Social service consult for positive UDS Pain management per patient request Plan and anticipate a vaginal delivery 05/13/2019 Routine cares Monitor bleeding closely CBC tomorrow
--- NOTE | 2019-05-13 17:25 | PCM.PNPP ---
- General Info Date of Service: 05/13/19 Functional Status: Reports: Pain Controlled - Review of Systems General: Reports: No Symptoms HEENT: Reports: No Symptoms Pulmonary: Reports: No Symptoms Cardiovascular: Reports: No Symptoms Gastrointestinal: Reports: No Symptoms Genitourinary: Reports: No Symptoms Musculoskeletal: Reports: No Symptoms Skin: Reports: No Symptoms Neurological: Reports: No Symptoms Psychiatric: Reports: No Symptoms - Patient Data Vital Signs - Most Recent: Last Vital Signs Temp 36.0 C 05/13/19 11:30 Pulse 90 05/13/19 11:30 Resp 16 05/13/19 11:30 BP 120/64 05/13/19 11:30 Pulse Ox 96 05/13/19 10:00 Weight - Most Recent: 54.885 kg I&O - Last 24 Hours: Intake & Output 05/13/19 05/13/19 05/13/19 06:59 14:59 22:59 Intake Total 2480 Balance 2480 Lab Results - Last 24 Hours: Laboratory Results - last 24 hr 05/13/19 05/13/19 05/13/19 Range/Units 05:08 05:20 05:22 WBC (4.5-11.0) K/uL RBC (3.30-5.50) M/uL Hgb (12.0-15.0) g/dL Hct (36.0-48.0) % MCV (80-98) fL MCH (27-31) pg MCHC (32-36) % Plt Count (150-400) K/uL Neut % (Auto) (36-66) % Lymph % (Auto) (24-44) % [place] % (Auto) (2-6) % Eos % (Auto) (2-4) % Baso % (Auto) (0-1) % Urine Color Yellow (YELLOW) Urine Appearance Clear (CLEAR) Urine pH 6.5 (5.0-8.0) Ur Specific [place] 1.010 (1.008-1.030) Urine Protein Negative (NEGATIVE) mg/dL Urine Glucose (UA) 100 H (NEGATIVE) mg/dL Urine Ketones Negative (NEGATIVE) mg/dL Urine Occult Blood Trace-lysed H (NEGATIVE) Urine Nitrite Negative (NEGATIVE) Urine Bilirubin Negative (NEGATIVE) Urine Urobilinogen 1.0 (0.2-1.0) EU/dL Ur Leukocyte Esterase Negative (NEGATIVE) Urine RBC 0-5 (0-5) Urine WBC 0-5 (0-5) Ur Epithelial Cells Moderate Amorphous Sediment Not seen Urine Bacteria Few Urine Mucus Not seen Membrane Rupture Positive H (NEGATIVE) Urine Opiates Screen Negative (NEGATIVE) Ur Oxycodone Screen Negative (NEGATIVE) Urine Methadone Screen Negative (NEGATIVE) Ur Propoxyphene Screen Negative (NEGATIVE) Ur Barbiturates Screen Negative (NEGATIVE) Ur Tricyclics Screen Negative (NEGATIVE) Ur Phencyclidine Scrn Negative (NEGATIVE) Ur Amphetamine Screen Presumptive positive H (NEGATIVE) U Methamphetamines Scrn Presumptive positive H (NEGATIVE) Urine MDMA Screen Negative (NEGATIVE) U Benzodiazepines Scrn Negative (NEGATIVE) U Cocaine Metab Screen Negative (NEGATIVE) U Marijuana (THC) Screen Negative (NEGATIVE) 05/13/19 Range/Units 06:28 WBC 11.0 (4.5-11.0) K/uL RBC 3.48 (3.30-5.50) M/uL Hgb 10.0 L (12.0-15.0) g/dL Hct 32.0 L (36.0-48.0) % MCV 92 (80-98) fL MCH 29 (27-31) pg MCHC 31 L (32-36) % Plt Count 270 (150-400) K/uL Neut % (Auto) 74 H (36-66) % Lymph % (Auto) 20 L (24-44) % [place] % (Auto) 6 (2-6) % Eos % (Auto) 1 L (2-4) % Baso % (Auto) 0 (0-1) % Urine Color (YELLOW) Urine Appearance (CLEAR) Urine pH (5.0-8.0) Ur Specific [place] (1.008-1.030) Urine Protein (NEGATIVE) mg/dL Urine Glucose (UA) (NEGATIVE) mg/dL Urine Ketones (NEGATIVE) mg/dL Urine Occult Blood (NEGATIVE) Urine Nitrite (NEGATIVE) Urine Bilirubin (NEGATIVE) Urine Urobilinogen (0.2-1.0) EU/dL Ur Leukocyte Esterase (NEGATIVE) Urine RBC (0-5) Urine WBC (0-5) Ur Epithelial Cells Amorphous Sediment Urine Bacteria Urine Mucus Membrane Rupture (NEGATIVE) Urine Opiates Screen (NEGATIVE) Ur Oxycodone Screen (NEGATIVE) Urine Methadone Screen (NEGATIVE) Ur Propoxyphene Screen (NEGATIVE) Ur Barbiturates Screen (NEGATIVE) Ur Tricyclics Screen (NEGATIVE) Ur Phencyclidine Scrn (NEGATIVE) Ur Amphetamine Screen (NEGATIVE) U Methamphetamines Scrn (NEGATIVE) Urine MDMA Screen (NEGATIVE) U Benzodiazepines Scrn (NEGATIVE) U Cocaine Metab Screen (NEGATIVE) U Marijuana (THC) Screen (NEGATIVE) Med Orders - Current: Current Medications Acetaminophen (Tylenol) 650 mg PO Q4H PRN PRN Reason: Pain (Mild 1-3) and fever Acetaminophen (Tylenol Bulk Bottle) 325 mg PO Q4H PRN PRN Reason: Pain Last Admin: 05/13/19 11:53 Dose: 1 bottle Benzocaine (Neki-J-Annudsz 20% [place]) 0 gm TOP Q4H PRN PRN Reason: Perineal Comfort Measure Lactated Ringer's (Ringers, Lactated) 1,000 mls @ 100 mls/hr IV ASDIRECTED SAI Last Admin: 05/13/19 06:44 Dose: 100 mls/hr Oxytocin/Sodium Chloride (Pitocin In Ns 20 Units/1,000 Ml) 20 unit in 1,000 mls @ 6 mls/hr IV TITRATE SAI; Protocol Last Titration: 05/13/19 10:25 Dose: 999 mls/hr Ibuprofen (Motrin Bulk Bottle) 600 mg PO Q6H PRN PRN Reason: Pain Last Admin: 05/13/19 11:53 Dose: 1 bottle Ondansetron HCl (Zofran) 4 mg IV Q4H PRN PRN Reason: Nausea/Vomiting Sodium Chloride (Saline Flush) 10 ml FLUSH ASDIRECTED PRN PRN Reason: Keep Vein Open Dianne Carrizales (Tuckfran) 1 pad TOP ASDIRECTED PRN PRN Reason: Hemorrhoids Discontinued Medications Fentanyl (Sublimaze) Confirm Administered Dose 100 mcg .ROUTE .STK-MED ONE Stop: 05/13/19 10:36 Last Admin: 05/13/19 11:53 Dose: Not Given Penicillin G Potassium 5 (millunits/ Sodium Chloride) 50 mls @ 100 mls/hr IV ONETIME ONE Stop: 05/13/19 06:00 Last Admin: 05/13/19 07:16 Dose: Not Given Sodium Chloride (Normal Saline) 1,000 mls @ 999 mls/hr IV BOLUS ONE Stop: 05/13/19 06:58 Last Admin: 05/13/19 05:45 Dose: 999 mls/hr Methylergonovine Maleate (Methergine) 0.2 mg IM Q4H STA Stop: 05/13/19 11:55 Last Admin: 05/13/19 10:45 Dose: 0.2 mg - Interaction Support Person: Significant Other - Recovery Exam Fundal Tone: Firm Fundal Level: At Umbilicus Fundal Placement: Midline Lochia Amount: Moderate Lochia Color: Rubra/Red Episiotomy/Laceration: None Bladder Status: Voiding - Problem List & Annotations (1) Positive urine drug screen SNOMED Code(s): 759386805, 442489872, 032124715 Code(s): R82.5 - ELEVATED URINE LEVELS OF DRUG/MEDS/BIOL SUBST Status: Acute Current Visit: Yes (2) High risk due to history of labor SNOMED Code(s): 263668747 Code(s): O09.219 - SUPRVSN OF PREG W HISTORY OF PRE-TERM LABOR, UNSP TRIMESTER Status: Acute Current Visit: Yes (3) care insufficient SNOMED Code(s): 6047671814788 Code(s): O09.30 - SUPRVSN OF PREG W INSUFFICIENT ANTENAT CARE, UNSP TRIMESTER Status: Acute Current Visit: Yes (4) SROM (spontaneous rupture of membranes) SNOMED Code(s): 526859059 Code(s): ERR9820 - Status: Acute Current Visit: Yes (5) Labor established SNOMED Code(s): 03652122 Code(s): FOG2604 - Status: Acute Current Visit: Yes (6) SNOMED Code(s): 92903114 Code(s): Z34.90 - ENCNTR FOR SUPRVSN OF NORMAL , UNSP, UNSP TRIMESTER Status: Acute Current Visit: Yes Qualifiers: Weeks of gestation: 39 weeks Qualified Code(s): Z3A.39 - 39 weeks gestation of (7) Vaginal delivery SNOMED Code(s): 646866752 Code(s): O80 - ENCOUNTER FOR FULL-TERM UNCOMPLICATED DELIVERY Status: Acute Current Visit: Yes (8) hemorrhage SNOMED Code(s): 93101907 Code(s): O72.1 - OTHER IMMEDIATE HEMORRHAGE Status: Acute Current Visit: Yes Qualifiers: hemorrhage type: third-stage Qualified Code(s): O72.0 - Third- stage hemorrhage - Problem List Review Problem List Initiated/Reviewed/Updated: Yes - My Orders Last 24 Hours: My Active Orders 05/13/19 05:07 OB Check [OM.PC] Click To Edit 05/13/19 06:00 Patient Status [ADT] Routine Sodium Chloride 0.9% [Saline Flush] 10 ml FLUSH ASDIRECTED PRN Saline Lock Insert [OM.PC] Routine Resuscitation Status Routine 05/13/19 06:07 Ambulate [RC] PER UNIT ROUTINE May Shower [RC] ASDIRECTED Notify Provider Vital Signs [RC] PRN Up ad Jessica [RC] ASDIRECTED Consult to Case Management/Woods Manager [CONS] Routine Acetaminophen [Tylenol] 650 mg PO Q4H PRN Ondansetron [Zofran] 4 mg IV Q4H PRN DVT/VTE Prophylaxis Reflex [OM.PC] Routine 05/13/19 06:13 VTE/DVT Education [RC] Click to Edit 05/13/19 06:43 AMPHETAMINE SCREEN RFLX Routine 05/13/19 06:45 Lactated Ringers [Ringers, Lactated] 1,000 ml IV ASDIRECTED Oxytocin/Normal Saline [Pitocin in NS 20 Units/1,000 ML] 20 unit in 1,000 ml IV TITRATE 05/13/19 10:58 Patient Status [ADT] Routine Vital Signs [RC] PFP Benzocaine [Veyx-F-Dihkkix 20% [place]] See Dose Instructions TOP Q4H PRN Dianne Carrizales [[place]] 1 pad TOP ASDIRECTED PRN Assess Lochia [WOMSER] Per Unit Routine Assess Uterine Involution [WOMSER] Per Unit Routine 05/13/19 11:04 Acetaminophen [Tylenol Bulk Bottle] 325 mg PO Q4H PRN Ibuprofen [Motrin Bulk Bottle] 600 mg PO Q6H PRN 05/13/19 Breakfast Regular Diet [DIET] 05/14/19 06:00 CBC WITH AUTO DIFF [HEME] Routine - Assessment Assessment:: 05/13/2019 23 yo G4 now P3 delivered Bottlefeeding Hemorrhage Positive Drug Screen 05/13/2019 Patient wanting to leave-education done that she could go to treatment, patient declines at this time. Patient states she does not want to keep this baby and just wants to go home to her own bed. Did discuss multiple risk factors including risk of hemorrhage and infection but patient still refuses to stay. Will have patient sign AMA form since she is leaving against medical advice. - Plan Plan:: 05/13/2019 23 yo here at 39 3/7 weeks gestation with SROM at 0300 this am History of poor care Drug use-methamphetamine patient admitted to as recently as today History of at 24 weeks gestation last History of noncompliance Labs-A positive, Hep B neg, Hep C neg, HIV neg, RPR nonreactive, Rubella Immune , GBS negative, UDS positive today for methamphetamines and amphetamines Plan- Continue to monitor labor Continue to monitor FHTs If labor does not progress with start pitocin Give IV bolus at this time Social service consult for positive UDS Pain management per patient request Plan and anticipate a vaginal delivery 05/13/2019 Routine cares Monitor bleeding closely CBC tomorrow
== END 2019-05-13 14:45 | disposition left against medical advice (07) | DRG 806 ==
LOC: JP.OBCHECK 05:02 → JP.OB 05:38 → OBSVTOIN 10:19
PROVIDERS: ADMIT Advanced Practice Midwife; ATTEND Advanced Practice Midwife
PROC: 10E0XZZ Delivery of Products of Conception, External Approach (ICD-10-PCS; principal; 2019-05-13)
DX: O42.02 Full-term premature rupture of membranes, onset of labor within 24 hours of rupture (principal); O99.324 Drug use complicating childbirth; Z37.0 Single live birth; O72.1 Other immediate postpartum hemorrhage; Z3A.39 39 weeks gestation of pregnancy; O75.89 Other specified complications of labor and delivery; Z91.19 Patient's noncompliance with other medical treatment and regimen; F15.90 Other stimulant use, unspecified, uncomplicated; Z53.21 Procedure and treatment not carried out due to patient leaving prior to being seen by health care provider
CPT/HCPCS: 36415; 59409; 80305-QW; 80307; 81001; 84112; 85025; 88307; 99211; A9270-GY; J2210; J2590; J7030; J7120

== ENCOUNTER 2020-04-24 19:56 | Inpatient (IN) | payer MEDICAID ==
[2020-04-24] MEDS ORDERED: Sodium Chloride 0.9% 1,000 ML IV ONE (20:40)
[2020-04-24] MEDS ORDERED: cefTRIAXone 1 GM in Sodium Chloride 0.9% 50 ML IV ONE (21:22)
--- NOTE | 2020-04-24 22:18 | PCM.LDHP ---
L&D History of Present Illness - General Date of Service: 04/24/20 Admit Problem/Dx: Admission Diagnosis/Problem Admission Diagnosis/Problem Source of Information: Patient History Limitations: Reports: No Limitations - History of Present Illness Introduction:: 04/24/20 Patient presented to ED this evening with complaints of back pain in . She was sent to OB. She is a 24 yo at 36 2/7 weeks. She has had minimal care and methamphetamine use this . When she presented to OB she had a temperature of 99.8 and a WBC of 15.1. Urine suspicious for UTI. [facility] working with patient. Location, : Reports: Lower back Improves with: Reports: None Worsens with: Reports: None Associated Symptoms: Denies: vaginal bleeding, vaginal fluid - Related Data Allergies/Adverse Reactions: Allergies Allergy/AdvReac Type Severity Reaction Status Date / Time No Known Allergies Allergy Verified 12/02/18 12:11 Home Medications: Home Meds Prenat 115/Iron Fum/Folic/Dss [ 19 Tablet] 1 tab PO DAILY 10/19/18 [History] Past Medical History HEENT History: Reports: None Cardiovascular History: Reports: None Respiratory History: Reports: None Gastrointestinal History: Reports: GERD Genitourinary History: Reports: None 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 TECHNOLOGIST History: Reports: : 4 Para: 2 LMP (Approximate): Other OB/BYN History: had gestational diabetes with first and had second child 4 months early Musculoskeletal History: Reports: None Neurological History: Reports: None Psychiatric History: Reports: Addiction Hematologic History: Reports: None Immunologic History: Reports: None Oncologic (Cancer) History: Reports: None Dermatologic History: Reports: None - Infectious Disease History Infectious Disease History: Reports: None - Past Surgical History Head Surgeries/Procedures: Reports: None HEENT Surgical History: Reports: None Cardiovascular Surgical History: Reports: None Respiratory Surgical History: Reports: None GI Surgical History: Reports: None Female Surgical History: Reports: None Endocrine Surgical History: Reports: None Neurological Surgical History: Reports: None Musculoskeletal Surgical History: Reports: Other (See Below) Other Musculoskeletal Surgeries/Procedures:: hip surgery Oncologic Surgical History: Reports: None Dermatological Surgical History: Reports: None Social & Family History - Family History Family Medical History: Noncontributory - Tobacco Use Smoking Status *Q: Current Every Day Smoker Years of Tobacco use: 10 Packs/Tins Daily: 0.5 Used Tobacco, but Quit: No Second Hand Smoke Exposure: Yes - Caffeine Use Caffeine Use: Reports: Soda - Recreational Drug Use Recreational Drug Use: Yes Drug Use in Last 12 Months: Yes Recreational Drug Type: Reports: Amphetamines (Speed), Methamphetamine H&P Review of Systems - Review of Systems: Review Of Systems: See Below General: Reports: Fatigue HEENT: Reports: No Symptoms, Glasses Pulmonary: Reports: Cough. Denies: Shortness of Breath, Wheezing Cardiovascular: Reports: No Symptoms Gastrointestinal: Reports: No Symptoms Genitourinary: Reports: No Symptoms Musculoskeletal: Reports: Back Pain Skin: Reports: No Symptoms Psychiatric: Reports: No Symptoms Neurological: Reports: No Symptoms Hematologic/Lymphatic: Reports: No Symptoms Immunologic: Reports: No Symptoms L&D Exam - Exam Exam: See Below - Vital Signs Vital Signs: Last Vital Signs Temp 37.7 C 04/24/20 20:06 Pulse 100 04/24/20 20:06 Resp 16 04/24/20 20:06 BP 120/62 04/24/20 20:06 Pulse Ox Weight: 54.885 kg - OB Specific Contraction Duration (sec): 40-80 Contraction Frequency (min): 1-2 Contraction Intensity: Mild Movement: Active Heart Tones: Present Heart Tones per Min: 150 Heart Rate (FHR) Variability: Moderate (6-25 bmp) Presentation: Vertex - Exam General: Alert, Oriented, Lethargic HEENT: PERRLA, Hearing Intact, Mucosa Moist & [place] Neck: Supple Lungs: Clear to Auscultation, Normal Respiratory Effort Cardiovascular: Regular Rate, Regular Rhythm GI/Abdominal Exam: Normal Bowel Sounds Genitourinary: Normal external exam, Cervical dilitation. No: Vaginal bleeding Back Exam: Normal Inspection, Full Range of Motion Extremities: Normal Inspection, No Pedal Edema Skin: Warm, Dry, Intact Neurological: Reflexes Equal Bilateral Psychiatric: Other (Very tired and sleeping, reports doing Methamphetamines 3 days ago and "just wants to sleep") - Patient Data Lab Results Last 24 hrs: Laboratory Results - last 24 hr 04/24/20 04/24/20 04/24/20 Range/Units 20:03 20:21 20:49 WBC 15.1 H (4.5-11.0) K/uL RBC 3.63 (3.30-5.50) M/uL Hgb 9.6 L (12.0-15.0) g/dL Hct 31.8 L (36.0-48.0) % MCV 88 (80-98) fL MCH 26 L (27-31) pg MCHC 30 L (32-36) % Plt Count 313 (150-400) K/uL Neut % (Auto) 80 H (36-66) % Lymph % (Auto) 14 L (24-44) % [place] % (Auto) 5 (2-6) % Eos % (Auto) 1 L (2-4) % Baso % (Auto) 0 (0-1) % Urine Color Yellow (YELLOW) Urine Appearance Slightly cloudy A (CLEAR) Urine pH 7.5 (5.0-8.0) Ur Specific [place] 1.020 (1.008-1.030) Urine Protein Negative (NEGATIVE) mg/dL Urine Glucose (UA) Negative (NEGATIVE) mg/dL Urine Ketones Negative (NEGATIVE) mg/dL Urine Occult Blood Negative (NEGATIVE) Urine Nitrite Negative (NEGATIVE) Urine Bilirubin Negative (NEGATIVE) Urine Urobilinogen 0.2 (0.2-1.0) EU/dL Ur Leukocyte Esterase Moderate H (NEGATIVE) Urine RBC 0-5 (0-5) Urine WBC 5-10 H (0-5) Ur Epithelial Cells Many Amorphous Sediment Few Urine Bacteria Few Urine Mucus Not seen Urine Opiates Screen Negative (NEGATIVE) Ur Oxycodone Screen Negative (NEGATIVE) Urine Methadone Screen Negative (NEGATIVE) Ur Propoxyphene Screen Negative (NEGATIVE) Ur Barbiturates Screen Negative (NEGATIVE) Ur Tricyclics Screen Negative (NEGATIVE) Ur Phencyclidine Scrn Negative (NEGATIVE) Ur Amphetamine Screen Presumptive positive H (NEGATIVE) U Methamphetamines Scrn Presumptive positive H (NEGATIVE) Urine MDMA Screen Negative (NEGATIVE) U Benzodiazepines Scrn Negative (NEGATIVE) U Cocaine Metab Screen Negative (NEGATIVE) U Marijuana (THC) Screen Negative (NEGATIVE) SARS Virus RNA (PCR) (NEGATIVE) 04/24/20 Range/Units 20:52 WBC (4.5-11.0) K/uL RBC (3.30-5.50) M/uL Hgb (12.0-15.0) g/dL Hct (36.0-48.0) % MCV (80-98) fL MCH (27-31) pg MCHC (32-36) % Plt Count (150-400) K/uL Neut % (Auto) (36-66) % Lymph % (Auto) (24-44) % [place] % (Auto) (2-6) % Eos % (Auto) (2-4) % Baso % (Auto) (0-1) % Urine Color (YELLOW) Urine Appearance (CLEAR) Urine pH (5.0-8.0) Ur Specific [place] (1.008-1.030) Urine Protein (NEGATIVE) mg/dL Urine Glucose (UA) (NEGATIVE) mg/dL Urine Ketones (NEGATIVE) mg/dL Urine Occult Blood (NEGATIVE) Urine Nitrite (NEGATIVE) Urine Bilirubin (NEGATIVE) Urine Urobilinogen (0.2-1.0) EU/dL Ur Leukocyte Esterase (NEGATIVE) Urine RBC (0-5) Urine WBC (0-5) Ur Epithelial Cells Amorphous Sediment Urine Bacteria Urine Mucus Urine Opiates Screen (NEGATIVE) Ur Oxycodone Screen (NEGATIVE) Urine Methadone Screen (NEGATIVE) Ur Propoxyphene Screen (NEGATIVE) Ur Barbiturates Screen (NEGATIVE) Ur Tricyclics Screen (NEGATIVE) Ur Phencyclidine Scrn (NEGATIVE) Ur Amphetamine Screen (NEGATIVE) U Methamphetamines Scrn (NEGATIVE) Urine MDMA Screen (NEGATIVE) U Benzodiazepines Scrn (NEGATIVE) U Cocaine Metab Screen (NEGATIVE) U Marijuana (THC) Screen (NEGATIVE) SARS Virus RNA (PCR) Negative (NEGATIVE) Result Diagrams: 04/24/20 20:49 - Problem List (1) High risk due to history of labor SNOMED Code(s): 287851713 ICD Code: O09.219 - SUPRVSN OF PREG W HISTORY OF PRE-TERM LABOR, UNSP TRIMEST ER Status: Acute Current Visit: No (2) Positive urine drug screen SNOMED Code(s): 201077422, 281074299 ICD Code: R82.5 - ELEVATED URINE LEVELS OF DRUG/MEDS/BIOL SUBST Status: Acute Current Visit: No (3) SNOMED Code(s): 85187851 ICD Code: Z34.90 - ENCNTR FOR SUPRVSN OF NORMAL , UNSP, UNSP TRIMESTER Status: Acute Current Visit: No Qualifiers: Weeks of gestation: 39 weeks Qualified Code(s): Z3A.39 - 39 weeks gestation of (4) care insufficient SNOMED Code(s): 4261105588579 ICD Code: O09.30 - SUPRVSN OF PREG W INSUFFICIENT ANTENAT CARE, UNSP TRIMESTER Status: Acute Current Visit: No Problem List Initiated/Reviewed/Updated: Yes Orders Last 24hrs: Active Orders 24 hr Category Date Time Status OB Check [OM.PC] Click to Edit Care 04/24/20 20:03 Ordered Assessment/Plan Comment:: 04/24/20 Regular contractions at 36 2/7 weeks UTI Low grade temperature, WBC 15.1 COVID-19 negative Positive drug screen Hgb 9.6 GBS negative Plan: IV Rocephin 1 gram Fluid bolus and then 125 ml per hour Monitor for s/s of labor
[2020-04-24] MEDS ORDERED: hydrOXYzine HCl 25 MG Tab PO ONE (22:22)
[2020-04-24] MEDS: Sodium Chloride 0.9% 1,000 ML IV SCH (22:37)
[2020-04-25] MEDS ORDERED: Ondansetron 4 MG/2 ML SDV IV PRN (00:50)
[2020-04-25] MEDS ORDERED: Calcium Carbonate 500 MG Tab.Chew PO PRN (00:50)
[2020-04-25] MEDS ORDERED: Sodium Chloride 0.9% 10 ML Syringe FLUSH PRN (00:50)
--- NOTE | 2020-04-25 01:03 | PCM.PNLD ---
Labor Progress Note - VS & Meds Vital Signs: Last Vital Signs Temp 37.7 C 04/24/20 20:06 Pulse 100 04/24/20 20:06 Resp 16 04/24/20 20:06 BP 120/62 04/24/20 20:06 Pulse Ox Active Medications: Current Medications Sodium Chloride (Normal Saline) 1,000 mls @ 125 mls/hr IV ASDIRECTED [facility] Last Admin: 04/24/20 22:37 Dose: 125 mls/hr Documented by: Discontinued Medications Hydroxyzine HCl (Atarax) 50 mg PO ONETIME ONE Stop: 04/24/20 22:23 Last Admin: 04/24/20 22:32 Dose: 50 mg Documented by: Sodium Chloride (Normal Saline) 1,000 mls @ 999 mls/hr IV .BOLUS ONE Stop: 04/24/20 21:40 Last Admin: 04/24/20 21:00 Dose: 999 mls/hr Documented by: Ceftriaxone Sodium 1 gm/ (Sodium Chloride) 50 mls @ 100 mls/hr IV ONETIME ONE Stop: 04/24/20 21:51 Last Admin: 04/24/20 21:40 Dose: 100 mls/hr Documented by: - Uterine Contractions Uterine Monitoring Mode: External [place] Contraction Frequency (min): 1.5-2 Contraction Duration (sec): 20-80 Contraction Intensity: Mild Uterine Resting Tone: Soft - Monitoring Monitor Mode: External Ultrasound Heart Rate (FHR) Variability: Moderate (6-25 bmp) Accelerations: Present, 15x15 Decelerations: None Strip Review: Category I - Vaginal Exam Dilation (cm): 3 Effacement (Percent): 70 Station: Ballotable Cervical Position: Midposition Sterile Vaginal Exam Performed By: Екатерина Childers - Labor Progress (Free Text) Labor Progress: 04/25/20 Pt continues to sleep through contractions. SVE shows bloody show and 3/70/ballotable, vertex presentation. Temp 99.6. On review of labs from clinic she had calcium oxilate in her urine so I question if she has kidney stones causing her back pain. Urine culture from 04/21/20 had no significant growth. Category 1 strip. Continue to monitor patient.
[2020-04-25] MEDS ORDERED: Penicillin G Potassium 5 MILLUNITS in Sodium Chloride 0.9% 50 ML IV ONE (01:23)
[2020-04-25] MEDS: Penicillin G Potassium 2.5 MILLUNITS in Sodium Chloride 0.9% 50 ML IV SCH ×4 (05:22→18:33)
--- NOTE | 2020-04-25 05:58 | PCM.PNLD ---
Labor Progress Note - VS & Meds Vital Signs: Last Vital Signs Temp 37.4 C 04/25/20 03:30 Pulse 98 04/25/20 00:34 Resp 16 04/25/20 00:34 BP 126/56 L 04/25/20 00:34 Pulse Ox Active Medications: Current Medications Calcium Carbonate/Glycine (Tums) 1,000 mg PO Q2H PRN PRN Reason: Indigestion Sodium Chloride (Normal Saline) 1,000 mls @ 125 mls/hr IV ASDIRECTED [facility] Last Admin: 04/24/20 22:37 Dose: 125 mls/hr Documented by: Oxytocin/Sodium Chloride (Pitocin In Ns 20 Units/1,000 Ml) 20 unit in 1,000 mls @ 2,997 mls/hr IV ASDIRECTED [facility]; Protocol Penicillin G Potassium 2.5 (millunits/ Sodium Chloride) 50 mls @ 100 mls/hr IV Q4H [facility] Last Admin: 04/25/20 05:22 Dose: 100 mls/hr Documented by: Ondansetron HCl (Zofran) 4 mg IV Q4H PRN PRN Reason: Nausea/Vomiting Sodium Chloride (Saline Flush) 10 ml FLUSH ASDIRECTED PRN PRN Reason: Keep Vein Open Discontinued Medications Hydroxyzine HCl (Atarax) 50 mg PO ONETIME ONE Stop: 04/24/20 22:23 Last Admin: 04/24/20 22:32 Dose: 50 mg Documented by: Sodium Chloride (Normal Saline) 1,000 mls @ 999 mls/hr IV .BOLUS ONE Stop: 04/24/20 21:40 Last Admin: 04/24/20 21:00 Dose: 999 mls/hr Documented by: Ceftriaxone Sodium 1 gm/ (Sodium Chloride) 50 mls @ 100 mls/hr IV ONETIME ONE Stop: 04/24/20 21:51 Last Admin: 04/24/20 21:40 Dose: 100 mls/hr Documented by: Penicillin G Potassium 5 (millunits/ Sodium Chloride) 50 mls @ 100 mls/hr IV ONETIME ONE Stop: 04/25/20 01:52 Last Admin: 04/25/20 01:54 Dose: 100 mls/hr Documented by: - Uterine Contractions Uterine Monitoring Mode: External [place] Contraction Frequency (min): 2-4 Contraction Duration (sec): 50-100 Contraction Intensity: Mild Uterine Resting Tone: Soft - Monitoring Monitor Mode: External Ultrasound Heart Rate (FHR) Variability: Moderate (6-25 bmp) Accelerations: Present, 15x15 Decelerations: None Strip Review: Category I - Vaginal Exam Dilation (cm): 4 Effacement (Percent): 70 Station: -2 Cervical Position: Midposition Sterile Vaginal Exam Performed By: Екатерина Childers - Labor Progress (Free Text) Labor Progress: 04/25/20 Abnormal SVE, US done to verify head was the only presenting part. Confirmed that baby is vertex. She continues to contract and make slow cervical change. She is sleeping through contractions. Category 1 tracing. Continue to monitor and anticipate .
[2020-04-25] MEDS: Sodium Chloride 0.9% 1,000 ML IV SCH ×2 (07:40→17:47)
--- NOTE | 2020-04-25 08:48 | PCM.PNLD ---
Labor Progress Note - VS & Meds Vital Signs: Last Vital Signs Temp 36.1 C 04/25/20 08:10 Pulse 85 04/25/20 08:10 Resp 18 04/25/20 08:10 BP 97/57 L 04/25/20 08:10 Pulse Ox 97 04/25/20 08:10 Active Medications: Current Medications Calcium Carbonate/Glycine (Tums) 1,000 mg PO Q2H PRN PRN Reason: Indigestion Sodium Chloride (Normal Saline) 1,000 mls @ 125 mls/hr IV ASDIRECTED [facility] Last Admin: 04/25/20 07:40 Dose: 125 mls/hr Documented by: Oxytocin/Sodium Chloride (Pitocin In Ns 20 Units/1,000 Ml) 20 unit in 1,000 mls @ 2,997 mls/hr IV ASDIRECTED [facility]; Protocol Penicillin G Potassium 2.5 (millunits/ Sodium Chloride) 50 mls @ 100 mls/hr IV Q4H [facility] Last Admin: 04/25/20 05:22 Dose: 100 mls/hr Documented by: Ondansetron HCl (Zofran) 4 mg IV Q4H PRN PRN Reason: Nausea/Vomiting Sodium Chloride (Saline Flush) 10 ml FLUSH ASDIRECTED PRN PRN Reason: Keep Vein Open Discontinued Medications Hydroxyzine HCl (Atarax) 50 mg PO ONETIME ONE Stop: 04/24/20 22:23 Last Admin: 04/24/20 22:32 Dose: 50 mg Documented by: Sodium Chloride (Normal Saline) 1,000 mls @ 999 mls/hr IV .BOLUS ONE Stop: 04/24/20 21:40 Last Admin: 04/24/20 21:00 Dose: 999 mls/hr Documented by: Ceftriaxone Sodium 1 gm/ (Sodium Chloride) 50 mls @ 100 mls/hr IV ONETIME ONE Stop: 04/24/20 21:51 Last Admin: 04/24/20 21:40 Dose: 100 mls/hr Documented by: Penicillin G Potassium 5 (millunits/ Sodium Chloride) 50 mls @ 100 mls/hr IV ONETIME ONE Stop: 04/25/20 01:52 Last Admin: 04/25/20 01:54 Dose: 100 mls/hr Documented by: - Uterine Contractions Uterine Monitoring Mode: External [place] Contraction Frequency (min): 1.5-4 Contraction Duration (sec): 40-80 Contraction Intensity: Mild Uterine Resting Tone: Soft - Monitoring Monitor Mode: External Ultrasound Heart Rate (FHR) Variability: Moderate (6-25 bmp) Accelerations: Present, 15x15 Decelerations: None Strip Review: Category I - Vaginal Exam Dilation (cm): 6 Effacement (Percent): 80 Station: -1 Cervical Position: Midposition Sterile Vaginal Exam Performed By: Екатерина Childers - Labor Progress (Free Text) Labor Progress: 04/25/20 SVE /-1. Patient has continued to sleep during labor. She is being cooperative. Woke her up now and suggested walking and a shower and she agrees. Her mom will come in and be her support person. She declines AROM until she has an epidural. She continues to have low back pain kidney stones vs labor pains. She is voiding in large amounts. Will do epidural when patient requests. Category 1 tracing. Temp is normal.
[2020-04-25] MEDS ORDERED: Sodium Chloride 0.9% 500 ML IV ONE (09:58)
--- NOTE | 2020-04-25 10:42 | PCM.PNLD ---
Labor Progress Note - VS & Meds Vital Signs: Last Vital Signs Temp 36.8 C 04/25/20 10:23 Pulse 77 04/25/20 10:23 Resp 18 04/25/20 10:23 BP 99/58 L 04/25/20 10:23 Pulse Ox 97 04/25/20 10:23 Active Medications: Current Medications Calcium Carbonate/Glycine (Tums) 1,000 mg PO Q2H PRN PRN Reason: Indigestion Sodium Chloride (Normal Saline) 1,000 mls @ 125 mls/hr IV ASDIRECTED [facility] Last Admin: 04/25/20 07:40 Dose: 125 mls/hr Documented by: Oxytocin/Sodium Chloride (Pitocin In Ns 20 Units/1,000 Ml) 20 unit in 1,000 mls @ 2,997 mls/hr IV ASDIRECTED [facility]; Protocol Penicillin G Potassium 2.5 (millunits/ Sodium Chloride) 50 mls @ 100 mls/hr IV Q4H [facility] Last Admin: 04/25/20 09:06 Dose: 100 mls/hr Documented by: Ondansetron HCl (Zofran) 4 mg IV Q4H PRN PRN Reason: Nausea/Vomiting Sodium Chloride (Saline Flush) 10 ml FLUSH ASDIRECTED PRN PRN Reason: Keep Vein Open Discontinued Medications Hydroxyzine HCl (Atarax) 50 mg PO ONETIME ONE Stop: 04/24/20 22:23 Last Admin: 04/24/20 22:32 Dose: 50 mg Documented by: Sodium Chloride (Normal Saline) 1,000 mls @ 999 mls/hr IV .BOLUS ONE Stop: 04/24/20 21:40 Last Admin: 04/24/20 21:00 Dose: 999 mls/hr Documented by: Ceftriaxone Sodium 1 gm/ (Sodium Chloride) 50 mls @ 100 mls/hr IV ONETIME ONE Stop: 04/24/20 21:51 Last Admin: 04/24/20 21:40 Dose: 100 mls/hr Documented by: Penicillin G Potassium 5 (millunits/ Sodium Chloride) 50 mls @ 100 mls/hr IV ONETIME ONE Stop: 04/25/20 01:52 Last Admin: 04/25/20 01:54 Dose: 100 mls/hr Documented by: Sodium Chloride (Normal Saline) 500 mls @ 999 mls/hr IV .BOLUS ONE Stop: 04/25/20 10:28 Last Admin: 04/25/20 09:58 Dose: 999 mls/hr Documented by: - Uterine Contractions Uterine Monitoring Mode: External [place] Contraction Frequency (min): 1-5 Contraction Duration (sec): 80-100 Contraction Intensity: Mild to Moderate Uterine Resting Tone: Soft - Monitoring Monitor Mode: External Ultrasound Heart Rate (FHR) Baseline: 135 Heart Rate (FHR) Variability: Moderate (6-25 bmp) Accelerations: Present, 15x15 Decelerations: Variable (occassional) Strip Review: Category I - Vaginal Exam Dilation (cm): 6 Effacement (Percent): 50 Station: Ballotable Cervical Position: Midposition Sterile Vaginal Exam Performed By: Екатерина Childers Vaginal Exam Comment: see note - Labor Progress (Free Text) Labor Progress: 04/25/20 Head was applied at last check around 0830. Baby felt OP at that time so pt placed on hands and knees for 30 min. Rechecked at 1000 and baby is ballotable again and I feel there is malpresentation, likely shoulder. Intact. Bedside US shows head off to maternal left slightly and not directly on the cervix. I am having another provider double check my SVE prior to making a decision.
--- NOTE | 2020-04-25 10:56 | PCM.PNLD ---
Labor Progress Note - VS & Meds Vital Signs: Last Vital Signs Temp 36.8 C 04/25/20 10:23 Pulse 77 04/25/20 10:23 Resp 18 04/25/20 10:23 BP 99/58 L 04/25/20 10:23 Pulse Ox 97 04/25/20 10:23 Active Medications: Current Medications Calcium Carbonate/Glycine (Tums) 1,000 mg PO Q2H PRN PRN Reason: Indigestion Sodium Chloride (Normal Saline) 1,000 mls @ 125 mls/hr IV ASDIRECTED [facility] Last Admin: 04/25/20 07:40 Dose: 125 mls/hr Documented by: Oxytocin/Sodium Chloride (Pitocin In Ns 20 Units/1,000 Ml) 20 unit in 1,000 mls @ 2,997 mls/hr IV ASDIRECTED [facility]; Protocol Penicillin G Potassium 2.5 (millunits/ Sodium Chloride) 50 mls @ 100 mls/hr IV Q4H [facility] Last Admin: 04/25/20 09:06 Dose: 100 mls/hr Documented by: Ondansetron HCl (Zofran) 4 mg IV Q4H PRN PRN Reason: Nausea/Vomiting Sodium Chloride (Saline Flush) 10 ml FLUSH ASDIRECTED PRN PRN Reason: Keep Vein Open Terbutaline Sulfate (Brethine) 0.25 mg SUBCUT Q30M [facility] Discontinued Medications Hydroxyzine HCl (Atarax) 50 mg PO ONETIME ONE Stop: 04/24/20 22:23 Last Admin: 04/24/20 22:32 Dose: 50 mg Documented by: Sodium Chloride (Normal Saline) 1,000 mls @ 999 mls/hr IV .BOLUS ONE Stop: 04/24/20 21:40 Last Admin: 04/24/20 21:00 Dose: 999 mls/hr Documented by: Ceftriaxone Sodium 1 gm/ (Sodium Chloride) 50 mls @ 100 mls/hr IV ONETIME ONE Stop: 04/24/20 21:51 Last Admin: 04/24/20 21:40 Dose: 100 mls/hr Documented by: Penicillin G Potassium 5 (millunits/ Sodium Chloride) 50 mls @ 100 mls/hr IV ONETIME ONE Stop: 04/25/20 01:52 Last Admin: 04/25/20 01:54 Dose: 100 mls/hr Documented by: Sodium Chloride (Normal Saline) 500 mls @ 999 mls/hr IV .BOLUS ONE Stop: 04/25/20 10:28 Last Admin: 04/25/20 09:58 Dose: 999 mls/hr Documented by: - Uterine Contractions Uterine Monitoring Mode: External [place] Contraction Frequency (min): 1-5 Contraction Duration (sec): 80-100 Contraction Intensity: Mild to Moderate Uterine Resting Tone: Soft - Monitoring Monitor Mode: External Ultrasound Heart Rate (FHR) Baseline: 135 Heart Rate (FHR) Variability: Moderate (6-25 bmp) Accelerations: Present, 15x15 Decelerations: Variable (occassional) Strip Review: Category I - Vaginal Exam Dilation (cm): 7 Effacement (Percent): 50 Station: Ballotable Cervical Position: Midposition Sterile Vaginal Exam Performed By: Marcia Santos Vaginal Exam Comment: see note - Labor Progress (Free Text) Labor Progress: 04/25/20 SVE performed by Marcia Santos CNM. Malposition verified and urgent section called.
[2020-04-25] MEDS ORDERED: Terbutaline 1 MG/ML SDV ONE (10:58)
[2020-04-25] MEDS: Terbutaline 1 MG/ML SDV SUBCUT SCH ×2 (11:02→13:24)
[2020-04-25] MEDS ORDERED: Oxytocin 10 Units/1 ML SDV ONE ×2 (11:10→11:26)
[2020-04-25] MEDS ORDERED: cefOXitin 2 GM Vial ONE (11:27)
[2020-04-25] MEDS ORDERED: Lanolin 100% Cream 40 GM Tube TOP PRN (11:37)
[2020-04-25] MEDS ORDERED: Witch Hazel Medicated Pads 100/Jar TOP PRN (11:37)
[2020-04-25] MEDS ORDERED: diphenhydrAMINE 50 MG/ML SDV IVPUSH PRN (11:37)
[2020-04-25] MEDS ORDERED: Ondansetron 4 MG Tab.DIS PO PRN (11:37)
[2020-04-25] MEDS ORDERED: Bisacodyl 10 MG Supp RECTAL PRN (11:37)
[2020-04-25] MEDS ORDERED: Simethicone 80 MG Tab.Chew PO PRN (11:37)
[2020-04-25] MEDS ORDERED: Naloxone 0.4 MG/ML SDV IVPUSH PRN (11:37)
[2020-04-25] MEDS ORDERED: Benzocaine 20% Top Spray 56 GM Bottle TOP PRN (11:37)
[2020-04-25] MEDS ORDERED: Hydrocortisone 2.5% Crm 30 GM Tube TOP PRN (11:37)
[2020-04-25] MEDS ORDERED: ePHEDrine 50 MG/ML SDV IVPUSH PRN (11:37)
[2020-04-25] MEDS ORDERED: Ondansetron 4 MG/2 ML SDV ONE (11:40)
[2020-04-25] MEDS ORDERED: ePHEDrine 50 MG/ML SDV ONE (11:40)
[2020-04-25] MEDS ORDERED: Dexamethasone 4 MG/ML SDV ONE (11:40)
[2020-04-25] MEDS ORDERED: Phenylephrine 1% 10 MG/ML SDV ONE ×2 (11:42→11:43)
[2020-04-25] MEDS: Ibuprofen 800 MG Tab PO PRN ×2 (13:39→21:36)
[2020-04-25] MEDS: fentaNYL 100 MCG/2 ML SDV IVPUSH PRN ×2 (14:11→16:35)
[2020-04-25] MEDS: Ferrous Sulfate 325 MG Tab PO SCH ×2 (18:14→18:19)
[2020-04-25] MEDS: Acetaminophen/HYDROcodone 325-5 MG Tab PO PRN (18:55)
[2020-04-26] MEDS: Sodium Chloride 0.9% 1,000 ML IV SCH ×2 (01:45→09:34)
[2020-04-26] MEDS: Acetaminophen/HYDROcodone 325-5 MG Tab PO PRN ×3 (04:36→18:08)
[2020-04-26] MEDS: Ibuprofen 800 MG Tab PO PRN ×2 (08:20→18:08)
[2020-04-26] MEDS: Ferrous Sulfate 325 MG Tab PO SCH ×2 (08:26→18:08)
[2020-04-26] MEDS: Prenatal Multivitamin with Calcium/Folic Acid/Iron Tab PO SCH (08:26)
--- NOTE | 2020-04-26 08:47 | PCM.SN.2 ---
- Free Text/Narrative Note: 04/26/20 Day one postop. Baby in NICU. Patient will be rounded on by surgery but I wanted to discuss treatment with patient today. She is interested in inpatient treatment "as long as Markos (significant other) can be home to care for the baby". Yesterday she stated she would only go if baby could go with her. I explained that this likely is not an option. She was set up for treatment around 18 weeks of and did not follow through. Angelica Gleason is involved in her case and paperwork has been faxed and message left. Will work further on plan tomorrow. Patient wants to go home, possibly tomorrow if surgery agrees. Hgb 7.7 today and ferrous sulfate 325mg started BID. She is asymptomatic. Rocephin 1 g ordered today for treatment of UTI. Back pain is gone.
[2020-04-26] MEDS ORDERED: cefTRIAXone 1 GM in Sodium Chloride 0.9% 50 ML IV ONE (09:30)
--- NOTE | 2020-04-26 09:34 | OR ---
DATE OF PROCEDURE: 04/25/2020 SURGEON: Solitario Abdul MD PROCEDURE: section with aftercare. SEMICONDUCTOR WAFERS ETCHER STRIPPER: Екатерина Childers CNM COMPLICATIONS: None. ANESTHESIA: Epidural. RISKS: Risks, benefits, alternatives, and limitations including, but not limited to, infection, bleeding, injury to baby and bladder, chronic wounds, chronic pain, requirement for blood transfusion, and other risks not listed here were explained to the patient, and they wished to proceed. I also discussed the higher risk associated with positive methamphetamine and its associated sequelae. PREOPERATIVE DIAGNOSIS: Failure of vaginal delivery. POSTOPERATIVE DIAGNOSIS: Failure of vaginal delivery. PROCEDURE IN DETAIL: The patient was placed in supine position. A Pfannenstiel type incision was made. This was carried down with electrocautery to and through the external oblique aponeurosis. The peritoneum was then entered sharply and a muscle sparing technique was performed. The bladder was identified, dissected, and deflected away from the uterus throughout the entire case. Using a blunt technique, the uterus was opened. A finger was placed between baby and uterus and uterus was enlarged. The baby was delivered without difficulty. The baby was not very interactive. The cord was clamped and subsequently cut. The placenta was delivered without difficulty. The uterus was delivered extracorporeally and inspected. No remnants remained. The uterus was then closed with #1 Vicryl in a running locked suture x2. This was repeated for a 2nd layer. The abdomen was inspected for clot or abnormality. Uterus was placed back in the abdomen after irrigation. The rectus muscles were approximated using #1 Vicryl suture. The fascia was closed with #1 Vicryl running sutures x2. Subcutaneous tissues were approximated with 3-0 Vicryl. Skin was closed with 4-0 Vicryl. The patient tolerated the procedure well. Of note, Екатерина Childers, was critical in the essential component of this surgery per ACOG guidelines. Solitario Abdul MD /[id number]
--- NOTE | 2020-04-26 13:47 | PN ---
DATE OF SERVICE: 04/26/2020 SUBJECTIVE: The patient is doing well. Pain is well controlled. No nausea, vomiting, shortness of breath, or chest pain. OBJECTIVE: VITAL SIGNS: Stable. She is afebrile per nursing report. CARDIOVASCULAR: Regular rhythm and rate. RESPIRATORY: Lungs are clear to auscultation bilaterally. SKIN: Incision is healing well. ASSESSMENT: Status post . PLAN: Her hemoglobin is low in the 7 today. She is asymptomatic with this. We will recheck hemoglobin in a.m. Aside from that, saline lock. Li is out. Increase activity. Solitario Abdul MD /[id number]
[2020-04-27] MEDS: Acetaminophen/HYDROcodone 325-5 MG Tab PO PRN (03:21)
[2020-04-27] MEDS: Ibuprofen 800 MG Tab PO PRN (03:21)
[2020-04-27] MEDS: Prenatal Multivitamin with Calcium/Folic Acid/Iron Tab PO SCH (08:32)
[2020-04-27] MEDS: Ferrous Sulfate 325 MG Tab PO SCH (08:32)
--- NOTE | 2020-04-27 11:46 | US ---
OB Ltd 1 or More Fetus CLINICAL HISTORY: Compare 5 presenting part FINDINGS: There is a single viable intrauterine in cephalic position. Placenta is posterior. There is spontaneous motion. heart rate is 142 bpm. Amniotic fluid index is 16.4. IMPRESSION: Single viable intrauterine in cephalic position
--- NOTE | 2020-04-27 12:24 | PCM.SN.2 ---
- Free Text/Narrative Note: 04/27/20 Patient discharged home today, cleared by surgery. Hgb 8.3. Discussed control with her. She declines a Nexplanon today. She is agreeable to progesterone only pills so a prescription is sent. [facility] is in contact with her. I spoke with the pit and auxiliaries supervisor there who stated that we should discharge patient home, they are working on rehab. She is on a county hold and has court this Monday per Twila.
--- NOTE | 2020-04-27 13:16 | PN ---
DATE OF SERVICE: 04/27/2020 SUBJECTIVE: The patient is doing much better today. Pain is well controlled. No nausea. No shortness of breath or chest pain. Passing gas. OBJECTIVE: VITAL SIGNS: Stable. She is afebrile per nursing report. CARDIOVASCULAR: Regular rhythm and rate. RESPIRATORY: Lungs clear to auscultation bilaterally. SKIN: Incision is healing well. ASSESSMENT: Status post . PLAN: Possible discharge today. She is awaiting her results from [facility]. We will discuss further with the water conservation specialist service. Solitario Abdul MD /[id number]
== END 2020-04-27 11:55 | disposition home or self-care (01) | DRG 786 ==
LOC: JP.OBCHECK 19:56 → JP.OB 04-25 01:09 → UNDOADMOB 04-25 01:09 → OBSVTOIN 04-25 11:54 → INTOOBSV 04-25 11:54 → JP.MS 04-25 11:55 → JP.OB 04-25 11:55 → OBSVTOIN 04-25 12:30 → JP.OB 04-25 12:30 → JP.MS 04-25 12:30
PROVIDERS: ADMIT Advanced Practice Midwife; ATTEND Advanced Practice Midwife
PROC: 10D00Z1 Extraction of Products of Conception, Low, Open Approach (ICD-10-PCS; principal; 2020-04-25)
DX: O99.324 Drug use complicating childbirth (principal); O75.3 Other infection during labor; F15.90 Other stimulant use, unspecified, uncomplicated; O99.334 Smoking (tobacco) complicating childbirth; O99.89 Other specified diseases and conditions complicating pregnancy, childbirth and the puerperium; N20.0 Calculus of kidney; F17.210 Nicotine dependence, cigarettes, uncomplicated; O32.9XX0 Maternal care for malpresentation of fetus, unspecified, not applicable or unspecified; Z11.59 Encounter for screening for other viral diseases; Z3A.36 36 weeks gestation of pregnancy; Z37.0 Single live birth; Z79.899 Other long term (current) drug therapy
CPT/HCPCS: 36415; 59409; 76815; 76815-26; 80048; 80305-QW; 81001; 85025; 85027; 86850; 86900; 86901; 88307; 99211; A9270-GY; J0694; J0696; J1100; J2370; J2405; J2540; J2590; J3010; J3105; J7030; J7040; J7050; U0002

== ENCOUNTER 2020-11-30 08:27 | Day surgery (SDC) | payer MEDICAID ==
[~2020-11-30 08:27] MED LIST: Bupivacaine 0.5% 50 ML MDV ONE; Lidocaine 1% with EPINEPHrine 1:100,000 50 ML MDV ONE
[2020-11-30] MEDS ORDERED: Propofol 200 MG/20 ML SDV ONE (08:45)
[2020-11-30] MEDS ORDERED: Ondansetron 4 MG/2 ML SDV ONE (08:45)
[2020-11-30] MEDS ORDERED: Rocuronium 50 MG/5 ML Vial ONE (08:45)
[2020-11-30] MEDS ORDERED: Neostigmine Methylsulfate 1 MG/ML 5 ML Syringe ONE (08:45)
[2020-11-30] MEDS ORDERED: Glycopyrrolate 0.2 MG/ML 5 ML MDV ONE (08:45)
[2020-11-30] MEDS ORDERED: Dexamethasone 4 MG/ML SDV ONE (08:45)
[2020-11-30] MEDS ORDERED: Sodium Chloride 0.9% 1,000 ML IV SCH (09:30)
[2020-11-30] MEDS ORDERED: ceFAZolin 2 GM in Premix Bag 1 BAG IV ONE (10:00)
[2020-11-30] MEDS ORDERED: metroNIDAZOLE/Normal Saline 500 MG in Premix Bag 1 BAG IV ONE (10:00)
[2020-11-30] MEDS ORDERED: fentaNYL 250 MCG/5 ML SDV ONE (11:10)
[2020-11-30] MEDS ORDERED: Docusate Sodium 100 MG Cap PO PRN (11:55)
[2020-11-30] MEDS ORDERED: Zolpidem 5 MG Tab PO PRN (11:55)
[2020-11-30] MEDS ORDERED: Acetaminophen/HYDROcodone 325-5 MG Tab PO PRN (11:55)
[2020-11-30] MEDS ORDERED: Benzocaine/Cetylpyridinium/Menthol Lozenge MUCMEM PRN (11:55)
[2020-11-30] MEDS ORDERED: hydrOXYzine HCL 100 MG/2 ML SDV IM PRN (11:55)
--- NOTE | 2020-11-30 19:58 | OR ---
DATE OF PROCEDURE: 11/30/2020 SURGEON: Solitario Abdul MD PROCEDURE: Laparoscopic cholecystectomy. COMPLICATIONS: None. DATER ASSEMBLER: None. ANESTHETIC: General/local. PREOPERATIVE DIAGNOSES: Cholelithiasis, cholecystitis. POSTOPERATIVE DIAGNOSES: Cholelithiasis, cholecystitis. RISKS: Risks, benefits, alternatives and limitations including but not limited to infection, bleeding, cystic duct injuries, common bile duct leaks and other risks not listed here were explained to the patient and she wished to proceed. We also discussed seroma, hematoma and possibility of open surgery. The patient understands. PROCEDURE IN DETAIL: The patient was placed in supine position. Infraumbilical curvilinear incision was made. A Veress needle was used to enter the abdomen without abnormality. A drop test was performed without abnormality. The abdomen was subsequently insufflated. This was followed by additional 12 and two 5 mm ports under direct visualization. The gallbladder was retracted cephalad. The infundibulum was retracted inferolaterally. Using blunt dissection, a "clear view" of the gallbladder was obtained with a single pulsatile structure entering the gallbladder and a single non-pulsatile structure in the gallbladder. These were subsequently clipped x3 and transected. The remaining one-third of the gallbladder was removed off the gallbladder bed without difficulty. The gallbladder was delivered through the superior port without difficulty. The gallbladder was inspected for any abnormal bleeding, none was noted. The air was removed. The wounds were closed with 3-0 Vicryl and 4-0 Vicryl in an interrupted running fashion. The patient tolerated the procedure well. Solitario Abdul MD /[id number]
--- NOTE | 2020-11-30 20:01 | OR ---
DATE OF PROCEDURE: 11/30/2020 SURGEON: Solitario Abdul MD PROCEDURES: 1. Bilateral transversus abdominis plane blocks. 2. Bilateral rectus sheath blocks. COMPLICATIONS: None. RICE DRYER MECHANIC: None. RISKS: Risks, benefits, alternatives and limitations including but not limited to infection, bleeding, and injury to abdominal structures were explained to the patient who wished to proceed. PROCEDURE IN DETAIL: The patient was placed in supine position. The right transversus plane was identified first using a 13 megahertz ultrasound probe. 20% of solution was injected in this location, this was repeated on the left side. The left and right rectus sheaths were also injected under direct visualization. Total 80% of the solution available was used. The patient tolerated the procedure well. Solitario Abdul MD /[id number]
== END 2020-11-30 14:55 | disposition home or self-care (01) ==
LOC: JP.SDS 08:27 → JP.MS 12:40 → JP.SDS 14:55
PROVIDERS: ATTEND Surgery
DX: K80.10 Calculus of gallbladder with chronic cholecystitis without obstruction (principal); F17.210 Nicotine dependence, cigarettes, uncomplicated; Z98.890 Other specified postprocedural states
CPT/HCPCS: 36415; 47562; 80053; 81025; 85027; A9270; J0171; J0690; J1100; J2405; J2704; J2710; J2795; J3010; J3490; J7030

== ENCOUNTER 2021-06-19 18:15 | Emergency (ER) | payer MEDICAID ==
--- NOTE | 2021-06-19 18:41 | EDM.PDOC ---
ED HPI GENERAL MEDICAL PROBLEM - General Chief Complaint: General Stated Complaint: COVID TEST FOR WORK RETURN Time Seen by Provider: 06/19/21 18:32 Source of Information: Reports: Patient History Limitations: Reports: No Limitations - History of Present Illness INITIAL COMMENTS - FREE TEXT/NARRATIVE: Presents emergency room today secondary to concerns about possible Covid. She states that she had a positive Covid exposure last Monday. It was her niece who tested positive on Monday. She states starting Monday she had fever stuffy nose cough diarrhea with 4 episodes today nausea no vomiting and headache. Her T-max today was 100.6 which she took this morning. She has been taking cold cough medicine from [id number]. She took a last dose about an hour and a half prior to coming to the emergency room secondary to fever and headache she did not take her temperature at that time. She has not received a Covid immunization. She works at the local [employer] and states she needs Covid testing in order to return to work. PMH--methamphetamine abuse (sober x 14 months) Meds--denies NKDA Tob--1/2ppd EtOH--rare Drugs--none currently, sober x 14 mos methamphetamine Patient states she has not had previous + COVID test/infection nor has she had the COVID immunization - Related Data Allergies Allergy/AdvReac Type Severity Reaction Status Date / Time No Known Allergies Allergy Verified 06/19/21 18:27 Home Meds: Home Meds NK [No Known Home Meds] 06/19/21 [History] Past Medical History HEENT History: Reports: Other (See Below) Other HEENT History: wears glasses, cornea inflammed from contacts Cardiovascular History: Reports: None Respiratory History: Reports: None Gastrointestinal History: Reports: Cholelithiasis, GERD Genitourinary History: Reports: Pyelonephritis, UTI, Recurrent AIR PLANT ENGINEER History: Reports: Other AIR PLANT ENGINEER History: had gestational diabetes with first and had second child 4 months early Musculoskeletal History: Reports: Other (See Below) Other Musculoskeletal History: fx arm as child Neurological History: Reports: None Psychiatric History: Reports: Addiction Hematologic History: Reports: Iron Deficiency Immunologic History: Reports: None Oncologic (Cancer) History: Reports: None Dermatologic History: Reports: None - Infectious Disease History Infectious Disease History: Reports: Chicken Pox - Past Surgical History Head Surgeries/Procedures: Reports: None HEENT Surgical History: Reports: None Cardiovascular Surgical History: Reports: None Respiratory Surgical History: Reports: None GI Surgical History: Reports: Cholecystectomy Female Surgical History: Reports: Section Endocrine Surgical History: Reports: None Neurological Surgical History: Reports: None Musculoskeletal Surgical History: Reports: Other (See Below) Other Musculoskeletal Surgeries/Procedures:: hip surgery for hip dysplasia Oncologic Surgical History: Reports: None Dermatological Surgical History: Reports: None Social & Family History - Family History Family Medical History: No Pertinent Family History - Tobacco Use Tobacco Use Status *Q: Current Every Day Tobacco User Years of Tobacco use: 10 Packs/Tins Daily: 0.5 Used Tobacco, but Quit: No Second Hand Smoke Exposure: No - Caffeine Use Caffeine Use: Reports: Coffee, Soda - Recreational Drug Use Recreational Drug Use: No ED ROS GENERAL - Review of Systems Review Of Systems: Comprehensive ROS is negative, except as noted in HPI. Constitutional: Reports: Fever, Chills, Fatigue HEENT: Reports: Rhinitis, Throat Pain. Denies: Ear Pain Respiratory: Reports: Shortness of Breath, Cough Cardiovascular: Reports: No Symptoms Endocrine: Reports: No Symptoms GI/Abdominal: Reports: Diarrhea, Nausea : Reports: No Symptoms Musculoskeletal: Reports: No Symptoms Skin: Reports: No Symptoms Neurological: Reports: No Symptoms Psychiatric: Reports: No Symptoms Hematologic/Lymphatic: Reports: No Symptoms Immunologic: Reports: No Symptoms ED EXAM, GENERAL - Physical Exam Exam: See Below Exam Limited By: No Limitations General Appearance: Alert, WD/WN, No Apparent Distress Eye Exam: Bilateral Eye: EOMI, Normal Inspection, PERRL Ears: Normal External Exam, Normal Canal, Hearing Grossly Normal, Normal TMs Nose: Normal Inspection Throat/Mouth: Normal Inspection, Normal Lips, Normal Oropharynx, Normal Voice, No Airway Compromise Head: Atraumatic, Normocephalic Neck: Normal Inspection, Supple, Non-Tender, Full Range of Motion Respiratory/Chest: No Respiratory Distress, Lungs Clear, Normal Breath Sounds Cardiovascular: Normal Peripheral Pulses, Regular Rate, Rhythm, No Edema, No Murmur Peripheral Pulses: 2+: Radial (L), Radial (R) GI/Abdominal: Normal Bowel Sounds, Soft, Non-Tender (Female) Exam: Deferred Rectal (Female) Exam: Deferred Back Exam: Normal Inspection, Full Range of Motion Extremities: Normal Inspection, Normal Range of Motion, No Pedal Edema, Normal Capillary Refill Neurological: Alert, Oriented, Normal Cognition, Normal Gait, No Motor/Sensory Deficits Psychiatric: Normal Affect, Normal Mood Skin Exam: Warm, Dry, Intact, Normal Color Course - Vital Signs Text/Narrative:: Discussed with patient at time of ER evaluation that given her Covid exposure and symptoms of concern that she will have to go on a 10 to 14-day home quarantine self-isolation. That she may continue to use cough and cold products as per [id number] label as well as ibuprofen and/or acetaminophen for any body aches fevers chills headache. I did provide up scription for nausea and possible vomiting of ondansetron. Did discuss importance of oral hydration that when she feels better that her appetite will return. Follow-up with primary care provider should any further concerns develop by telephone do not go into the clinic without permission from the clinic secondary to Covid diagnosis. Return to the emergency room should you have any worsening symptoms of concern. Patient did go home from the emergency room before Covid test had resulted and we will contact her with those results. A work excuse was given for 10 to 14 days and needing to be retested if today's test is negative on Monday. 1929--was notified of positive Covid test that was called per lab. Wendi, EVENT EXECUTIVE will contact patient with these results as well as emphasize recommendations to include that she must home quarantine self isolate for the next 10 to 14 days and would not not be released and to return to work till that time has passed. Last Recorded V/S: Last Vital Signs Temp 97.8 F 06/19/21 18:29 Pulse 71 06/19/21 18:29 Resp 16 06/19/21 18:29 BP 101/70 06/19/21 18:29 Pulse Ox 94 L 06/19/21 18:29 - Orders/Labs/Meds Labs: Laboratory Tests 06/19/21 Range/Units 18:45 SARS-CoV-2 RNA (SUNDEEP) Positive H (NEGATIVE) Departure - Departure Time of Disposition: 18:46 Disposition: Home, Self-Care 01 Condition: Good Clinical Impression: Person under investigation for COVID-19, COVID-19 - Discharge Information *PRESCRIPTION DRUG MONITORING PROGRAM REVIEWED*: Not Applicable *COPY OF PRESCRIPTION DRUG MONITORING REPORT IN PATIENT ADA: Not Applicable Instructions: 10 Things You Can Do to Manage Your COVID-19 Symptoms at Home - [facility] (04/01/2020), How to Wear and Take Off Your Mask - [facility] (12/31/2020), Symptoms of Coronavirus - [facility] (11/23/2020) Referrals: Ruth Choi CNM [Primary Care Provider] - Forms: ED Department Discharge Additional Instructions: Ensure that you are drinking plenty of fluids to stay well-hydrated. Water, juices, sports drinks of choice other options include Jell-O popsicles soups. When you are feeling better your appetite will return You may use [id number] cough cold medications as well as ibuprofen (Motrin, Advil) and/or acetaminophen (Tylenol) per label for symptoms. Please ensure that you watch combinations of medications to include acetaminophen and cold products as well as plain acetaminophenit is recommended that you do not exceed 4000 mg of acetaminophen in a 24-hour. Been provided a prescription for ondansetron (Zofran) please follow the label for use with any nausea or vomiting. If you are unable to tolerate the sublingual route/under your tongue then you can swallow pill small amount of water Due to your reported Covid exposure and symptoms tonight it is recommended that you continue with your 10 to 14-day home quarantine self-isolation. Covid testing has been performed and we will contact you with results. Covid testing post exposure is recommended at 5 to 7 days post exposure if today's test is negative you will need to be retested on Monday in order to return to work. If you are still having symptoms of fevers chills cough congestion as well as nausea and diarrhea he cannot return to work until these have been resolved for at least 24 hours and you are no longer requiring medications to control symptoms. Follow up with your primary care provider should you have any further concerns, return to the emergency room for any worsening symptoms for further evaluation Sepsis Event Note (ED) - Focused Exam Vital Signs: Vital Signs Temp Pulse Resp BP Pulse Ox 06/19/21 18:29 97.8 F 71 16 101/70 94 L 06/19/21 18:28 97.8 F 71 16 101/70 94 L
== END 2021-06-19 19:07 | disposition home or self-care (01) ==
LOC: JP.ED 18:15
DX: U07.1 COVID-19 (principal); Z72.0 Tobacco use
CPT/HCPCS: 99284; U0002

== ENCOUNTER 2022-08-07 12:29 | Emergency (ER) | payer MEDICAID ==
[2022-08-07] MEDS ORDERED: Bacitracin Oint 1 GM U/D Packet TOP ONE (14:01)
== END 2022-08-07 14:24 | disposition home or self-care (01) ==
LOC: JP.ED 12:29
DX: T23.201A Burn of second degree of right hand, unspecified site, initial encounter (principal); Z90.49 Acquired absence of other specified parts of digestive tract; X10.2XXA Contact with fats and cooking oils, initial encounter
CPT/HCPCS: 99283

== ENCOUNTER 2023-06-25 04:16 | Emergency (ER) | payer MEDICAID ==
[2023-06-25 05:19] LABS: BASOPHILS PERCENT AUTO 0.3 % (0.1-1.3); EOSINOPHILS ABSOLUTE AUTO 0.04 K/uL (0.00-0.40); EOSINOPHILS PERCENT AUTO 0.5 % (0.0-5.4); HEMATOCRIT 35.6 % (34.3-46.0); HEMOGLOBIN 11.5 g/dL (11.2-15.5); IMMATURE GRAN PERCENT AUTO 0.3 % (0.0-0.7); LYMPHOCYTES ABSOLUTE AUTO 1.22 K/uL (0.8-3.3); LYMPHOCYTES PERCENT AUTO 15.9 % (11.4-47.7); MEAN CORPUSCULAR HEMOGLOBIN 28.8 pg (31.6-35.5); MEAN CORPUSCULAR HGB CONC 32.3 g/dL (31.6-35.5); MONOCYTES ABSOLUTE AUTO 0.65 K/uL (0.20-0.90); MONOCYTES PERCENT AUTO 8.5 % (3.3-12.6); NEUTROPHILS ABSOLUTE AUTO 5.71 K/uL (1.0-7.6); NEUTROPHILS PERCENT AUTO 74.5 % (40.0-78.1); PLATELET COUNT,PLT 206 K/uL (130-375); WHITE BLOOD CELL COUNT,WBC 7.7 K/uL (3.2-11.0)
[2023-06-25 05:27] LABS: BASOPHILS ABSOLUTE AUTO 0.02 K/uL (0.00-0.10); IMMATURE GRAN ABSOLUTE AUTO 0.02 K/uL (0.00-0.23)
[2023-06-25] MEDS ORDERED: Ondansetron 4 MG Tab.DIS PO ONE (05:40)
[2023-06-25 05:43] LABS: A/G RATIO 0.8 (1.2-2.2); ALANINE AMINOTRANSFERASE,ALT 34 U/L (12-78); ALBUMIN 2.8 g/dL (3.4-5.0); ALKALINE PHOSPHATASE 75 U/L (46-116); ASPARTATE AMNIOTRANSFERASE,AST 21 U/L (15-37); BILIRUBIN TOTAL 0.2 mg/dL (0.2-1.0); BLOOD UREA NITROGEN,BUN 13 mg/dL (7-18); C-REACTIVE PROTEIN 4.02 mg/dL (0.0-0.3); CARBON DIOXIDE,CO2 26 mmol/L (21-32); CHLORIDE,CL 104 mmol/L (100-108); CREATININE 0.8 mg/dL (0.6-1.0); EST CRCL DRUG DOSING (CG) 69.72 mL/min; ESTIMATED GFR 103 mL/min (>60); GLUCOSE RANDOM 107 mg/dL (74-106); POTASSIUM,K 3.5 mmol/L (3.6-5.2); PROTEIN TOTAL,TP 6.3 g/dL (6.4-8.2); SODIUM,NA 137 mmol/L (140-148)
[2023-06-25 05:47] LABS: ANION GAP 10.5 mmol/L (5.0-14.0)
[2023-06-25 05:51] LABS: APPEARANCE,URINE CLEAR (CLEAR); BILIRUBIN,URINE NEGATIVE (NEGATIVE); COLOR,URINE YELLOW (YELLOW); GLUCOSE,URINE NEGATIVE (NEGATIVE); KETONES,URINE NEGATIVE (NEGATIVE); LEUKOCYTE ESTERASE,URINE NEGATIVE (NEGATIVE); NITRITE,URINE NEGATIVE (NEGATIVE); OCCULT BLOOD,URINE MODERATE (NEGATIVE); PH,URINE 7.5 (5.0-8.0); PROTEIN,URINE NEGATIVE (NEGATIVE); UROBILINOGEN,URINE 0.2 EU/dL (0.2-1.0)
[2023-06-25 05:53] LABS: RBC,URINE 0-5 (0-5); WBC,URINE 0-5 (0-5)
[2023-06-25 05:54] LABS: AMORPHOUS SEDIMENT,URINE MODERATE; BACTERIA,URINE FEW; EPITHELIAL CELLS,URINE MODERATE; MUCUS,URINE NOT SEEN
== END 2023-06-25 06:52 | disposition home or self-care (01) ==
LOC: JP.ED 04:16
DX: A08.4 Viral intestinal infection, unspecified (principal); F17.200 Nicotine dependence, unspecified, uncomplicated; Z20.822 Contact with and (suspected) exposure to COVID-19
CPT/HCPCS: 36415; 80053; 81001; 85025; 86140; 87635; 99284; Q0162; U0002

== ENCOUNTER 2024-03-19 16:16 | Emergency (ER) | payer MEDICAID ==
[2024-03-19 16:34] VITALS: BP 103/57; PULSE 85
[2024-03-19 17:06] LABS: BASOPHILS PERCENT AUTO 0.5 % (0.1-1.3); EOSINOPHILS ABSOLUTE AUTO 0.07 K/uL (0.00-0.40); EOSINOPHILS PERCENT AUTO 1.8 % (0.0-5.4); HEMATOCRIT 35.3 % (34.3-46.0); HEMOGLOBIN 11.8 g/dL (11.2-15.5); IMMATURE GRAN PERCENT AUTO 0.3 % (0.0-0.7); LYMPHOCYTES ABSOLUTE AUTO 0.64 K/uL (0.8-3.3); LYMPHOCYTES PERCENT AUTO 16.3 % (11.4-47.7); MEAN CORPUSCULAR HEMOGLOBIN 30.3 pg (31.6-35.5); MEAN CORPUSCULAR HGB CONC 33.4 g/dL (31.6-35.5); MEAN CORPUSCULAR VOLUME 90.7 fL (81.4-99.0); MONOCYTES ABSOLUTE AUTO 0.39 K/uL (0.20-0.90); MONOCYTES PERCENT AUTO 9.9 % (3.3-12.6); NEUTROPHILS ABSOLUTE AUTO 2.79 K/uL (1.0-7.6); NEUTROPHILS PERCENT AUTO 71.2 % (40.0-78.1); PLATELET COUNT,PLT 144 K/uL (130-375); RED BLOOD CELL COUNT 3.89 M/uL (3.77-5.24); WHITE BLOOD CELL COUNT,WBC 3.9 K/uL (3.2-11.0)
[2024-03-19 17:07] LABS: BASOPHILS ABSOLUTE AUTO 0.02 K/uL (0.00-0.10); IMMATURE GRAN ABSOLUTE AUTO 0.01 K/uL (0.00-0.23)
[2024-03-19] MEDS: Sodium Chloride 0.9% 1,000 ML IV ONE (17:12)
[2024-03-19] MEDS: Ondansetron 4 MG/2 ML SDV IVPUSH ONE (17:12)
[2024-03-19 17:18] LABS: A/G RATIO 0.9 (1.2-2.2); ALANINE AMINOTRANSFERASE,ALT 23 U/L (12-78); ALBUMIN 3.3 g/dL (3.4-5.0); ALKALINE PHOSPHATASE 55 U/L (46-116); ANION GAP 14.9 mmol/L (5.0-14.0); ASPARTATE AMNIOTRANSFERASE,AST 27 U/L (15-37); BILIRUBIN TOTAL 0.6 mg/dL (0.2-1.0); BLOOD UREA NITROGEN,BUN 18 mg/dL (7-18); CALCIUM 8.4 mg/dL (8.5-10.1); CARBON DIOXIDE,CO2 24 mmol/L (21-32); CHLORIDE,CL 103 mmol/L (100-108); CREATININE 0.9 mg/dL (0.6-1.0); EST CRCL DRUG DOSING (CG) 71.64 mL/min; ESTIMATED GFR 89 mL/min (>60); GLUCOSE RANDOM 85 mg/dL (74-106); POTASSIUM,K 3.9 mmol/L (3.6-5.2); PROTEIN TOTAL,TP 7.1 g/dL (6.4-8.2); SODIUM,NA 138 mmol/L (140-148)
[2024-03-19] MEDS: Acetaminophen 500 MG Tab PO ONE (18:17)
[2024-03-19 18:38] LABS: LYME AB IgG Negative (Negative); LYME AB IgM Equivocal (Negative)
[2024-03-19] MEDS: Doxycycline 100 MG Cap PO ONE (19:05)
[2024-03-22 16:50] LABS: B. BURGDORFERI IGG IMMUNOBLOT Negative (Negative); B. BURGDORFERI IGM IMMUNOBLOT Negative (Negative)
[2024-03-23 07:14] LABS: ANAPLASMA PHAGOCYTOPHILUM PCR Not Detected; BABESIA MICROTI BY PCR Not Detected; BABESIA SPECIES BY PCR Not Detected; EHRLICHIA CHAFFEENSIS BY PCR Not Detected; EHRLICHIA EWINGII/CANIS BY PCR Not Detected; EHRLICHIA MURIS-LIKE BY PCR Not Detected
== END 2024-03-19 19:08 | disposition home or self-care (01) ==
LOC: JP.ED 16:16
DX: A69.20 Lyme disease, unspecified (principal); Z86.16 Personal history of COVID-19
CPT/HCPCS: 36415; 80053; 85025; 86140; 86617; 86618; 87468; 87469; 87484; 87798; 96361; 96374; 99284; 99284-25; A9270-GY; J2405; J7030; U0002

== ENCOUNTER 2025-06-27 18:00 | Emergency (ER) | payer MEDICAID | END 2025-06-27 19:03 | disposition home or self-care (01) | LOC: JP.ED 18:00 | DX: K08.89 Other specified disorders of teeth and supporting structures (principal); F17.200 Nicotine dependence, unspecified, uncomplicated; Z79.899 Other long term (current) drug therapy; Z86.16 Personal history of COVID-19; Z90.49 Acquired absence of other specified parts of digestive tract | CPT/HCPCS: 99282 ==